=== PATIENT | female | born 1970 | race Caucasian/White ===

== ENCOUNTER 2022-02-18 08:02 | Emergency (ER) | payer OTHER, SELFPAY ==
--- NOTE | 2022-02-18 08:08 | ED.URI ---
HPI - URI/Sore Throat General Chief Complaint: Upper Respiratory Infection Stated Complaint: Sore Throat/Cough Time Seen by Provider: 02/18/22 08:21 Source: patient and RN notes reviewed Mode of arrival: EMS Limitations: no limitations History of Present Illness HPI Narrative: 52-year-old female concern for 3 week history of sore throat, cough, nasal congestion, eye drainage. Reports she is taking multiple [id number]-emfmdus medications with only temporary or no relief. She reports intermittent fevers of up to 101. Reports members of her family have been sick but have gotten better. MD elicited complaint: cough and sore throat Related Data Home Medications Medication Instructions Recorded Confirmed lisinopril 20 0.5 tablet PO DAILY 02/18/22 02/18/22 mg-hydrochlorothiazide 25 mg tablet Allergies Allergy/AdvReac Type Severity Reaction Status Date / Time adhesive Allergy Unknown unknown Verified 02/18/22 08:15 Review of Systems Review of Systems: CONSTITUTIONAL: Reports malaise, fever. EYES: Denies visual changes, redness. Reports discharge. ENT: Reports rhinorrhea, congestion, sinus pain,and sore throat. CARDIOVASCULAR: Denies chest pain, palpitations, or edema. RESPIRATORY: Reports persistent cough. Denies dyspnea. GASTROINTESTINAL: Denies abdominal pain, nausea, vomiting, diarrhea SKIN: Denies rash or itching. MUSCULOSKELETAL: Denies myalgia. NEUROLOGIC: Denies headache. All systems reviewed & are unremarkable except as noted in HPI and below PMFSH Past Medical History Medical History (Updated 02/18/22 @ 08:26 by Anabella Banerjee NP) Hypertension Family History Family History (Updated 10/19/15 @ 23:19 by DOCTOR UNKNOWN) Father Family history of glaucoma Family history of rheumatoid arthritis Family history of diabetes mellitus in first degree relative Family history of heart disease in male family member before age 55 Mother Family history of psoriasis Grandparent Family history of malignant neoplasm of ovary Family history of heart disease in male family member before age 55 Diabetes mellitus Other Hypertension Social History Social History Smoking status: Never smoker Second hand tobacco smoke exposure: No Alcohol intake: current Comments At time of signature, agree with nursing past medical, surgical, social and family history. There is no relevant family history pertinent to the presenting complaint Exam Narrative: GENERAL: Well-appearing, well-nourished, and in no acute distress. HEAD: Normocephalic EYES: PERRLA, conjunctivae clear ENT: Nares clear, turbinates edematous and erythematous. Mucous membranes moist. TM pearly prescott with dull light reflex bilaterally; no tragal tenderness. Oropharynx erythematous without lesions. Tonsils not enlarged and without exudate, no drooling, no hoarseness, no trismus, uvula midline. NECK: Supple. No lymphadenopathy CHEST: Clear to auscultation, breath sounds equal. No wheezing, rhonchi, rales, or stridor. No respiratory distress, speaks in full sentences. HEART: Regular rate and rhythm. No murmur heard. SKIN: Warm, dry, no rash. NEURO: Alert and oriented x3. PSYCH: Normal mood and affect Course Course Emergency Course: Patient is aware of diagnosis, understands and agrees to treatment plan. Anticipatory guidance given. Patient agrees to follow-up as directed and is aware of reasons to seek care at the emergency department. Portions of this record may have been created with voice recognition software Level of Care: Express Care Visit Vital Signs Vital signs: Reviewed. MDM - URI/Sore Throat MDM Narrative Medical decision making narrative: Differential diagnosis considered: Kumar virus, strep pharyngitis, allergic rhinitis, upper respiratory tract infection, sinusitis, rhinosinusitis, nasopharyngitis. viral pharyngitis, otitis media, otitis externa, pneumonia, bronchitis, viral cough syndrome, viral syndrome, and influenz
[2022-02-18 08:10] VITALS: BP 186/99; PULSE 79; RESP 20; TEMP 36.6; O2SAT 98
== END 2022-02-18 08:29 | disposition home or self-care (01) ==
PROVIDERS: Emergency Provider Nurse Practitioner
DX: J32.9 Chronic sinusitis, unspecified (principal); J40 Bronchitis, not specified as acute or chronic; I10 Essential (primary) hypertension
CPT/HCPCS: 99213; G0463

== ENCOUNTER 2022-08-15 10:33 | Outpatient (CLI) | payer OTHER, SELFPAY ==
--- NOTE | 2022-08-15 11:13 | ECG_ITS ---
Measurements Intervals Lamont Rate: 71 P: 12 NM: 195 QRS: 16 QRSD: 87 T: 45 QT: 400 QTc: 436 Interpretive Statements SINUS RHYTHM LEFT VENTRICULAR HYPERTROPHY WITH ST-T CHANGE CONSIDER INFERIOR INFARCT, AGE INDETERMINATE ABNORMAL ECG NO PREVIOUS ECG AVAILABLE FOR COMPARISON Electronically Signed On 08-15-2022 12:31:07 CDT by Alexander Delgadillo D.O.
[2022-08-15 11:49] LABS: Anion Gap 5 mmol/L (8-16); Blood Urea Nitrogen 11 mg/dL (7-17); Carbon Dioxide 34 mmol/L (22-30); Chloride 101 mmol/L (98-107); Estimated Glomerular Filt Rate > 60; Glucose 125 mg/dL (65-110); Potassium 3.6 mmol/L (3.4-5.0); Sodium 140 mmol/L (137-145)
== END 2022-08-15 10:34 | disposition home or self-care (01) ==
PROVIDERS: PCP Hospitalist; Visit Provider Orthopaedic Surgery
DX: M25.561 Pain in right knee (principal); R94.31 Abnormal electrocardiogram [ECG] [EKG]
CPT/HCPCS: 36415; 80048; 93005

== ENCOUNTER 2022-09-08 08:10 | Emergency (ER) | payer OTHER, SELFPAY ==
[2022-09-08 08:16] VITALS: BP 167/93; PULSE 94; RESP 20; TEMP 36.8; O2SAT 97
[2022-09-08 08:27] VITALS: BP 167/93; PULSE 94; RESP 20; TEMP 36.8; O2SAT 97
--- NOTE | 2022-09-08 08:31 | ED.FEMALEGU ---
HPI - Female Genitourinary General Chief complaint: Urogenital-Female Stated complaint: Poss UTI History of Present Illness HPI Narrative: patient presents with low back pain burning with urination no pelvic pain no flank pain no gross hematuria no concern for STD Related Data Home Medications Medication Instructions Recorded Confirmed lisinopril 20 0.5 tablet PO DAILY 02/18/22 09/08/22 mg-hydrochlorothiazide 25 mg tablet Allergies Allergy/AdvReac Type Severity Reaction Status Date / Time adhesive Allergy Unknown unknown Verified 09/08/22 08:19 Review of Systems Review of Systems: CONSTITUTIONAL: Denies fever, chills, or sweats. EYES: Denies visual changes, redness, or discharge. ENT: Denies rhinorrhea, congestion, sore throat, or otalgia. CARDIOVASCULAR: Denies chest pain, palpitations, or edema. RESPIRATORY: Denies cough or dyspnea. GASTROINTESTINAL: Denies abdominal pain, nausea, vomiting, or diarrhea. GENITOURINARY: Denies dysuria or hematuria. SKIN: Denies rash or itching. MUSCULOSKELETAL: Denies back pain, joint pain, or myalgia. NEUROLOGIC: Denies headache, numbness, or weakness. PSYCHIATRIC: Denies anxiety or depression. [facility] Past Medical History Medical History (Updated 09/08/22 @ 08:34 by ERVIN Haynes) Hypertension Family History Family History (Updated 10/19/15 @ 23:19 by DOCTOR UNKNOWN) Father Family history of glaucoma Family history of rheumatoid arthritis Family history of diabetes mellitus in first degree relative Family history of heart disease in male family member before age 55 Mother Family history of psoriasis Grandparent Family history of malignant neoplasm of ovary Family history of heart disease in male family member before age 55 Diabetes mellitus Other Hypertension Social History Social History Smoking status: Never smoker Second hand tobacco smoke exposure: No Alcohol intake: current Comments At time of signature, agree with nursing past medical, surgical, social and family history. There is no relevant family history pertinent to the presenting complaint Exam Narrative: GENERAL: Well-appearing, well-nourished, and in no acute distress. HEAD: Normocephalic, atraumatic. EYES: PERRLA and EOMI. ENT: Nares clear, no rhinorrhea or epistaxis. Mucous membranes moist. NECK: Supple. CHEST: Clear to auscultation. No respiratory distress. HEART: Regular rate and rhythm. No murmur heard. Normal peripheral pulses. ABDOMEN: Soft, nontender, nondistended, normal active bowel sounds. No flank pain no suprapubic pain EXTREMITIES: Normal range of motion. No edema. SKIN: Warm, dry, no rash. NEURO: No focal deficits. Alert and oriented x3. Maddie Coma Scale Eye Opening: Spontaneous 4 Maddie Coma Scale Motor: Obeys Commands 6 Maddie Coma Scale Verbal: Oriented 5 Maddie Coma Scale Total 15 Course Course Level of Care: Express Care Visit Vital Signs Vital signs: Vital Signs Temperature 36.8 C 09/08/22 08:16 Pulse Rate 94 09/08/22 08:16 Respiratory Rate 20 09/08/22 08:16 Blood Pressure 167/93 H 09/08/22 08:16 Pulse Oximetry 97 09/08/22 08:16 Oxygen Delivery Room Air 09/08/22 08:16 Temperature 36.8 C 09/08/22 08:27 Pulse Rate 94 09/08/22 08:27 Respiratory Rate 20 09/08/22 08:27 Blood Pressure 167/93 H 09/08/22 08:27 Pulse Oximetry 97 09/08/22 08:27 Oxygen Delivery Room Air 09/08/22 08:27 Please IGNACIO schedule a followup visit with your personal physician for further evaluation and treatment. Including recheck and discussion of your blood pressure. If your symptoms persist, change or worsen significantly before you can contact your personal physician then please, without delay, go to the emergency department for further evaluation MDM - Female Genitourinary Differential Diagnosis Differential diagnosis: Likely urinary tract infection, bacterial vaginosis, trichomoniasis, cervicitis
== END 2022-09-08 08:40 | disposition home or self-care (01) ==
PROVIDERS: Emergency Provider Nurse Practitioner Family; PCP Hospitalist
DX: N39.0 Urinary tract infection, site not specified (principal); I10 Essential (primary) hypertension; B96.20 Unspecified Escherichia coli [E. coli] as the cause of diseases classified elsewhere
CPT/HCPCS: 81003; 87077; 87086; 87186; 99213; G0463

== ENCOUNTER 2022-11-20 08:02 | Emergency (ER) | payer OTHER, SELFPAY ==
[2022-11-20 08:12] VITALS: BP 170/100; PULSE 70; RESP 18; TEMP 36.7; O2SAT 100
--- NOTE | 2022-11-20 08:18 | ED.GENADULT ---
HPI - General Adult General Chief complaint: Skin/Abscess/Foreign Body Stated complaint: Poison Elli Time Seen by Provider: 11/20/22 08:18 Source: patient Mode of arrival: ambulatory Limitations: no limitations History of Present Illness HPI narrative: 52 y/o female presented for c/o left eye swelling, redness, and itching since yesterday. Symptoms started after working in the yard. States she gets poison elli every year, this is the first time this season. Denies vision changes, eye pain, photophobia or eye drainage. Denies lip, tongue, or throat swelling, shortness of breath or wheezing. Denies changes to soap, detergent, lotion, or any other exposures. No one else in the house or any contacts with similar symptoms. Took Motrin for symptoms. Related Data Home Medications Medication Instructions Recorded Confirmed lisinopril 20 0.5 tablet PO DAILY 02/18/22 11/20/22 mg-hydrochlorothiazide 25 mg tablet Allergies Allergy/AdvReac Type Severity Reaction Status Date / Time adhesive Allergy Unknown unknown Verified 11/20/22 08:20 Review of Systems Review of Systems: CONSTITUTIONAL: Denies body aches, fever, chills, or sweats. EYES: Denies visual changes, redness, or discharge. ENT: Denies rhinorrhea, congestion CARDIOVASCULAR: Denies chest pain, palpitations, or edema. RESPIRATORY: Denies cough or dyspnea. GASTROINTESTINAL: Denies abdominal pain, nausea, vomiting, or diarrhea. SKIN: left eye redness and itching MUSCULOSKELETAL: Denies back pain, joint pain, or myalgia. NEUROLOGIC: Denies headache, numbness, tingling, or weakness. [facility], [facility] Past Medical History Medical History Hypertension Family History Family History Father Family history of glaucoma Family history of rheumatoid arthritis Family history of diabetes mellitus in first degree relative Family history of heart disease in male family member before age 55 Mother Family history of psoriasis Grandparent Family history of malignant neoplasm of ovary Family history of heart disease in male family member before age 55 Diabetes mellitus Other Hypertension Social History Social History Smoking status: Never smoker Second hand tobacco smoke exposure: No Alcohol intake: current Comments At time of signature, I have reviewed and agree with nursing past medical, surgical, social and family history unless otherwise noted. Please see nursing chart for further information. There is no relevant family history pertinent to the presenting complaint Exam Narrative: GENERAL: Well-appearing HEAD: Normocephalic, atraumatic. EYES: bilateral conjunctivae clear, PERRLA and EOMI. Left eye with mild periorbital swelling and erythema c/w contact dermatitis. Eye is not occluded. No drainage. No FB. ENT: Mucous membranes moist. Oropharynx without edema, erythema or lesions. NECK: Supple. No lymphadenopathy CHEST: Clear to auscultation. HEART: Regular rate and rhythm. SKIN: Warm, dry. NEURO: Alert and oriented x3. Course Course Emergency Course: Patient is aware of diagnosis, understands and agrees to treatment plan. Anticipatory guidance given. Patient agrees to follow-up as directed and is aware of reasons to seek care at the emergency department. Portions of this record may have been created with voice recognition software Level of Care: Express Care Visit Vital Signs Vital signs: Reviewed Medical Decision Making MDM Narrative Medical decision making narrative: Discussed physical exam findings consistent with contact dermatitis of the left eye. Advised supportive measures and signs/symptoms to go to the ER. Pt is appropriate for outpt treatment and f/u. Differential Diagnosis Differential Diagnosis: allergic reaction, urticaria, angioedema, dermatitis
[2022-11-20 08:20] VITALS: BP 170/100; PULSE 70; RESP 18; TEMP 36.7; O2SAT 100
== END 2022-11-20 08:36 | disposition home or self-care (01) ==
PROVIDERS: Emergency Provider Nurse Practitioner Family; PCP Hospitalist
DX: L25.9 Unspecified contact dermatitis, unspecified cause (principal); I10 Essential (primary) hypertension
CPT/HCPCS: 99213; G0463

== ENCOUNTER 2023-01-05 09:45 | Outpatient (CLI) | payer OTHER, SELFPAY ==
[2023-01-05 19:07] LABS: Basophils Absolute Auto 0.1 K/mm3 (0.0-0.1); Basophils Percent Auto 0.7 % (0.2-1.2); Eosinophils Absolute Auto 0.2 K/mm3 (0-0.3); Eosinophils Percent Auto 1.9 % (0-4.4); Immature Granulocyte Absolute 0.08 K/mm3 (0.00-0.031); Immature Granulocyte Percent A 0.8 % (0-0.5); Lymphocytes Percent Auto 42.8 % (18.3-44.2); Mean Corpuscular HGB Conc 32.7 g/dl (32-36); Mean Corpuscular Hemoglobin 28.8 pg (26-34); Mean Corpuscular Volume 88.1 fl (80-100); Mean Platelet Volume 10.6 fl (7.4-10.4); Monocytes Absolute Auto 0.6 K/mm3 (0.1-0.6); Monocytes Percent Auto 5.7 % (2.6-8.5); Neutrophils Absolute Auto 5.1 K/mm3 (1.3-6.7); Neutrophils Percent Auto 48.1 % (45.5-73.1); Platelet Count Result 266 k/mm3 (150-375); Red Blood Count 5.56 M/mm3 (4.2-5.4); White Blood Count 10.5 K/mm3 (4.5-10.0)
[2023-01-05 20:03] LABS: Potassium 4.1 mmol/L (3.4-5.0)
[2023-01-05 20:09] LABS: Alanine Aminotransferase 24 U/L (6-35); Albumin Level 4.5 g/dL (3.5-5.1); Alkaline Phosphatase 93 U/L (38-126); Anion Gap 6 mmol/L (8-16); Aspartate Amino Transferase 52 U/L (14-36); Bilirubin,Total 0.6 mg/dL (0.2-1.3); Blood Urea Nitrogen 9 mg/dL (7-17); Calcium 9.3 mg/dL (8.4-10.2); Carbon Dioxide 31 mmol/L (22-30); Chloride 102 mmol/L (98-107); Cholesterol 250 mg/dL (0-200); Estimated Glomerular Filt Rate > 60; Glucose 95 mg/dL (65-110); HDL Direct 51 mg/dL; Sodium 139 mmol/L (137-145); Triglycerides 108 mg/dL (<150)
[2023-01-05 20:15] LABS: LDL Cholesterol Direct 152 mg/dL
[2023-01-05 20:32] LABS: Hemoglobin A1C 5.3 % (<5.7)
[2023-01-08 20:54] LABS: Insulin Level Total 22.9 uIU/mL (<=18.4)
== END 2023-01-05 09:46 | disposition home or self-care (01) ==
LOC: ANHBWCLAB 09:46
PROVIDERS: PCP Nurse Practitioner Adult Health; Visit Provider Nurse Practitioner Adult Health
DX: I10 Essential (primary) hypertension (principal); E66.9 Obesity, unspecified
CPT/HCPCS: 36415; 80053; 80061; 83036; 83525; 84443; 85025

== ENCOUNTER 2023-07-07 08:54 | Outpatient (CLI) | payer OTHER, SELFPAY ==
[2023-07-07 19:02] LABS: Basophils Absolute Auto 0.1 K/mm3 (0.0-0.1); Basophils Percent Auto 0.5 % (0.2-1.2); Eosinophils Absolute Auto 0.2 K/mm3 (0-0.3); Eosinophils Percent Auto 2.4 % (0-4.4); Hematocrit 51.5 % (37.0-47.0); Hemoglobin 16.3 g/dL (12.0-15.0); Immature Granulocyte Absolute 0.05 K/mm3 (0.00-0.031); Immature Granulocyte Percent A 0.5 % (0-0.5); Lymphocytes Absolute Auto 3.83 K/mm3 (0.9-3.2); Lymphocytes Percent Auto 40.1 % (18.3-44.2); Mean Corpuscular HGB Conc 31.7 g/dl (32-36); Mean Corpuscular Hemoglobin 27.5 pg (26-34); Mean Platelet Volume 10.9 fl (7.4-10.4); Monocytes Absolute Auto 0.6 K/mm3 (0.1-0.6); Monocytes Percent Auto 6.7 % (2.6-8.5); Neutrophils Absolute Auto 4.8 K/mm3 (1.3-6.7); Neutrophils Percent Auto 49.8 % (45.5-73.1); Platelet Count Result 255 k/mm3 (150-375); Red Blood Count 5.92 M/mm3 (4.2-5.4); Red Cell Distribution Width 14.5 % (11.5-14.5); White Blood Count 9.6 K/mm3 (4.5-10.0)
[2023-07-07 19:34] LABS: Alanine Aminotransferase 23 U/L (6-35); Albumin Level 4.7 g/dL (3.5-5.1); Alkaline Phosphatase 87 U/L (38-126); Anion Gap 4 mmol/L (4-12); Aspartate Amino Transferase 60 U/L (14-36); Bilirubin,Total 0.6 mg/dL (0.2-1.3); Blood Urea Nitrogen 11 mg/dL (7-17); Calcium 9.6 mg/dL (8.4-10.2); Carbon Dioxide 32 mmol/L (22-30); Chloride 102 mmol/L (98-107); Cholesterol 246 mg/dL (0-200); Estimated Glomerular Filt Rate > 60; Glucose 99 mg/dL (65-110); HDL Direct 56 mg/dL; Potassium 4.1 mmol/L (3.4-5.0); Sodium 138 mmol/L (137-145); Triglycerides 159 mg/dL (<150)
[2023-07-07 19:45] LABS: LDL Cholesterol Direct 157 mg/dL
[2023-07-07 20:40] LABS: Hemoglobin A1C 5.6 % (<5.7)
== END 2023-07-07 08:55 | disposition home or self-care (01) ==
LOC: ANHBWCLAB 08:55
PROVIDERS: PCP Nurse Practitioner Adult Health; Visit Provider Nurse Practitioner Adult Health
DX: E78.5 Hyperlipidemia, unspecified (principal)
CPT/HCPCS: 36415; 80053; 80061; 83036; 84443; 85025

== ENCOUNTER 2024-01-07 11:11 | Outpatient (CLI) | payer OTHER, SELFPAY ==
[2024-01-07 18:55] LABS: Basophils Absolute Auto 0.1 K/mm3 (0.0-0.1); Basophils Percent Auto 0.4 % (0.2-1.2); Eosinophils Absolute Auto 0.2 K/mm3 (0-0.3); Eosinophils Percent Auto 1.5 % (0-4.4); Hematocrit 47.2 % (37.0-47.0); Hemoglobin 15.6 g/dL (12.0-15.0); Immature Granulocyte Absolute 0.05 K/mm3 (0.00-0.031); Immature Granulocyte Percent A 0.4 % (0-0.5); Lymphocytes Absolute Auto 3.76 K/mm3 (0.9-3.2); Lymphocytes Percent Auto 32.2 % (18.3-44.2); Mean Corpuscular HGB Conc 33.1 g/dl (32-36); Mean Corpuscular Hemoglobin 29.5 pg (26-34); Mean Corpuscular Volume 89.2 fl (80-100); Mean Platelet Volume 10.9 fl (7.4-10.4); Monocytes Absolute Auto 0.7 K/mm3 (0.1-0.6); Monocytes Percent Auto 6.2 % (2.6-8.5); Neutrophils Absolute Auto 6.9 K/mm3 (1.3-6.7); Neutrophils Percent Auto 59.3 % (45.5-73.1); Platelet Count Result 281 k/mm3 (150-375); Red Blood Count 5.29 M/mm3 (4.2-5.4); Red Cell Distribution Width 13.5 % (11.5-14.5); White Blood Count 11.7 K/mm3 (4.5-10.0)
[2024-01-07 19:29] LABS: Alanine Aminotransferase 31 U/L (6-35); Albumin Level 4.6 g/dL (3.5-5.1); Alkaline Phosphatase 60 U/L (38-126); Anion Gap 8 mmol/L (4-12); Aspartate Amino Transferase 70 U/L (14-36); Bilirubin,Total 0.6 mg/dL (0.2-1.3); Blood Urea Nitrogen 14 mg/dL (7-17); Calcium 9.8 mg/dL (8.4-10.2); Carbon Dioxide 31 mmol/L (22-30); Chloride 99 mmol/L (98-107); Cholesterol 224 mg/dL (0-200); Estimated Glomerular Filt Rate > 60; Glucose 90 mg/dL (65-110); HDL Direct 49 mg/dL; Magnesium 2.4 mg/dL (1.6-2.3); Potassium 4.2 mmol/L (3.4-5.0); Sodium 138 mmol/L (137-145); Triglycerides 154 mg/dL (<150)
[2024-01-07 19:41] LABS: LDL Cholesterol Direct 130 mg/dL
== END 2024-01-07 11:12 | disposition home or self-care (01) ==
LOC: ANHBWCLAB 11:13
PROVIDERS: PCP Nurse Practitioner Adult Health; Visit Provider Nurse Practitioner Adult Health
DX: I10 Essential (primary) hypertension (principal)
CPT/HCPCS: 36415; 80053; 80061; 83735; 85025

== ENCOUNTER 2024-07-14 08:52 | Outpatient (CLI) | payer OTHER, SELFPAY ==
--- OUTSIDE RECORDS SUMMARY | 2024-07-14 09:23 | XMS_ITS | Clinical Summary ---
Author Organization [facility] Address [address] [place] [address] Phone Care Team Providers Care Sharepoint Net Developer Name Role Phone Ruben Amaya MD Unavailable Allergies Active Allergy Reactions Criticality Noted Date Comments Adhesive Tape Rash,Itching 10/27/2016 Medications ergocalciferol (VITAMIN D) 08774 UNIT CapsuleIndicatio ns:Vitamin D deficiency Take 1 Cap by mouth once a week. 12 Cap 1 02/23/2019 Active lisinopril-hydro CHLOROthiazide (PRINZIDE, ZESTORETIC) 20-25 MG TabletIndication s:Hypertension, benign Take 1 Tab by mouth daily. 90 Tab 07/21/2019 Active Active Problems Problem Noted Date Diagnosed Date Vitamin D deficiency 09/20/2018 Hypertension, benign 10/27/2016 Obesity, morbid, BMI 40.0-49.9 10/27/2016 Hyperlipidemia 05/23/2003 Overview (08/11/2018): Overview: Hyperlipidemia Immunizations Immunization Administration Dates Next Due Influenza Vaccine, Quadrivalent, PF 12/02/2016 Influenza, Seasonal, Injectable, Undefined 01/13 Family History Medical History Relation Name Comments Diabetes Father Glaucoma Father Heart Attack Father Hypertension Father Rheumatoid Arthritis Father Heart Disease Maternal Grandfather Ovarian Cancer Maternal Grandmother Psoriasis Mother Diabetes Paternal Grandmother Relation Name Status Comments Father Alive Maternal Grandfather Maternal Grandmother Mother Alive Paternal Grandmother Social History Tobacco Use Types Packs/Day Years Used Date Smoking Tobacco: Never Smokeless Tobacco: Never Tobacco Cessation:Counseling Given: No Alcohol Use Standard Drinks/Week Comments Yes 0 (1 standard drink = 0.6 oz pur e alcohol) PHQ-2 Answer Date Recorded PHQ-2 Score 0 11/18/2018 Comments No Sex and Gender Information Value Date Recorded Sex Assigned at Not on file Legal Sex Female 7:26 PM CDT Gender Identity Not on file Sexual Orientation Not on file Last Filed Vital Signs Vital Sign Reading Time Taken Comments Blood Pressure 120/78 09/20/2018 10:02 AM CDT Pulse 82 09/20/2018 10:02 AM CDT Temperature 36.8 C (98.2 F) 09/20/2018 10:02 AM CDT Respiratory Rate 18 09/20/2018 10:0 2 AM CDT Oxygen Saturation 97% 09/20/2018 10: 02 AM CDT Inhaled Oxygen Concentration - - Weight 116.9 kg (257 lb 12. 8 oz) 09/20/2018 10:02 AM CDT Height 163.8 cm (5' 4.5 ) 09/20/2018 10 :02 AM CDT measured today Body Mass Index 43.57 09/20/2018 10:02 AM CDT Plan of Treatment Health Maintenance Due Date Last Done Comments Hepatitis C Virus (HCV) Screening 1970 TdaP Immunization 1970 Hepatitis B Immunization (1 of 3 - 19+ 3-dose series) 01/22/1987 Colonoscopy 01/22/2013 Colorectal Cancer Screening 01/22/2013 Cologuard 01/22/2018 Immunochemical Fecal Occult Blood 01/22/2018 Pneumococcal Immunization (5 0+ years) (1 of 1 - PCV) 01/22/2018 Zoster Immunization (1 of 2) 01/22/2018 Influenza Immunization (#1) 11/22/202311/21, 01/13/2013 SARS-COV-2 Immunization ( - 2023- season) 2023 Respiratory Syncytial Virus (RSV) Immunization (Adult) (1 - 1-dose 75+ series) 01/22/2043 Cervical Cancer Screening (CCS) Discontinued Pap Smear Discontinued 12/11/2011 Mammogram Discontinued 11/17/2018, 01/25/2013 HPV/Cotest Discontinued Meningococcal Immunization (ACWY) Aged Out No longer eligible based on patient's age to complete this topic Rotavirus Immunization Aged Out No lo nger eligible based on patient's age to complete this topic Procedures Procedure Name Priority Date/Time Associated Diagnosis Comments MANOHAR SCREENING BILATERAL DIGITAL W CAD W JOON Routine 11/17/2018 10:14 AM CDT Encounter for screening mammogram for malignant neoplasm of breast PATHOLOGY CYTOLOGY RESIDENTIAL SOLAR SALES CONSULTANT Routine 12/11/2011 from Last 3 Months or Most Recently Relevant to Health Maintenance Results * MANOHAR SCREENING BILATERAL DIGITAL W CAD W JOON (11/17/2018 10:14 AM CDT) Anatomical Region Laterality Modality breast Bilateral Mammography 11/17/2018 9:59 AM CDT Narrative 11/19/2018 11:04 AM CDT - MANOHAR SCREENING BILATERAL DIGITAL W CAD W JOON BILATERAL DIGITAL SCREENING MAMMOGRAM 3D/2D WITH CAD WITH MEDIOLATERAL OBLIQUE CRANIOCAUDAL: 11/17/2018 The study was acquired using digital technology and interpreted from soft copy. Current study was also evaluated with AppsFunder version 7.2. CLINICAL: Routine screening. Patient has no complaints. No personal history of cancer. No family history of breast cancer. COMPARISONS: Comparison is made to exams dated: 01/15/2010, 01/25/2013, and 01/19/2012 [facility]. BREAST TISSUE:There are scattered fibroglandular densities in both breasts. FINDINGS: No significant masses, calcifications, or other findings are seen in either breast. There has been no significant interval change. IMPRESSION: BI-RAD 1 NEGATIVE There is no mammographic evidence of malignancy. A 1 year screening mammogram is recommended. The patient has been or will be contacted. The patient will be entered into a reminder system with a target due date of 1 year for her next screening exam. Electronically signed by: Kobi farr/morris:11/18/2018 16:24:53 News Camera Operator: Christine Nugent (Jess), [facility] letter sent: Normal Exam Reading location: [facility] BI-RADS: 1 Negative Procedure Note Kobi García MD - 11/19/2018 - MANOHAR SCREENING BILATERAL DIGITAL W CAD W JOON BILATERAL DIGITAL SCREENING MAMMOGRAM 3D/2D WITH CAD WITH MEDIOLATERAL OBLIQUE CRANIOCAUDAL: 11/17/2018 The study was acquired using digital technology and interpreted from soft copy. Current study was also evaluated with ICAD version 7.2. CLINICAL: Routine screening. Patient has no complaints. No personal history of cancer. No family history of breast cancer. COMPARISONS: Comparison is made to exams dated: 01/15/2010, 01/25/2013, and 01/19/2012 [facility]. BREAST TISSUE:There are scattered fibroglandular densities in both breasts. FINDINGS: No significant masses, calcifications, or other findings are seen in either breast. There has been no significant interval change. IMPRESSION: BI-RAD 1 NEGATIVE There is no mammographic evidence of malignancy. A 1 year screening mammogram is recommended. The patient has been or will be contacted. The patient will be entered into a reminder system with a target due date of 1 year for her next screening exam. Electronically signed by: Kobi farr/morris:11/18/2018 16:24:53 News Camera Operator: Christine Nugent (R), [facility] letter sent: Normal Exam Reading location: [facility] BI-RADS: 1 Negative Ruben Amaya MD IMG MAMMO ORDERABLES F inal Result * PATHOLOGY CYTOLOGY RESIDENTIAL SOLAR SALES CONSULTANT (12/11/2011) Specimen of unknown material (specimen) Ruben Amaya MD PATHOLOGY/CYTOLOGY ORD ERABLES Final Result from Last 3 Months or Most Recently Relevant to Health Maintenance Insurance [facility] Care Teams Sharepoint Net Developer Relationship Specialty Start Date End Date Ruben Amaya MD Consulting Physician Obstetrics & Gynecology 08/11/18
--- OUTSIDE RECORDS SUMMARY | 2024-07-14 09:23 | XMS_ITS | Encounter Summary ---
Author Organization [facility] Address [address] [place] [address] Care Team Providers Care Weld Engineer Name Role Phone Unavailable Primary Care Provider Unavailabl e Encounter Details Date Type Department Care Team (Late st Contact Info) Description 05/23/2003 Outpatient Historical [facility] Internal Medicine [address] [id number] Rafal Riley MD [address] [place] [id number] Social History Tobacco Use Types Packs/Day Years Used Date Smoking Tobacco: Never Assessed Comments Unknown Sex and Gender Information Value Date Recorded Sex Assigned at Not on file Legal Sex Female 3:15 AM BOILING HOUSE HAND Gender Identity Not on file Sexual Orientation Not on file documented as of this encounter Last Filed Vital Signs Vital Sign Reading Time Taken Comments Blood Pressure 150/80 05/23/2003 4:00 PM BOILING HOUSE HAND Pulse - - Temperature - - Respiratory Rate - - Oxygen Saturation - - Inhaled Oxygen Concentration - - Weight 96.6 kg (213 lb) 05/23/2003 4:00 PM BOILING HOUSE HAND Height - - Body Mass Index - - documented in this encounter Plan of Treatment Not on file documented as of this encounter Visit Diagnoses Not on filedocumented in this encounter
--- OUTSIDE RECORDS SUMMARY | 2024-07-14 09:24 | XMS_ITS | Referral Summary ---
Author Organization [facility] [place] [address] [facility] Address [address] [place] [address] Care Team Providers Care President Educational Institution Name Role Phone Rajiv Nowak MD Primary Care Provider [phone] Allergies Active Allergy Reactions Criticality Noted Date Comments Adhesive Itching,Rash Medium 10/27/2016 Medications cholecalciferol (Vitamin D3) 2000 unit tabletIndicatio ns:Vitamin D Deficiency Take 1 tablet (2,000 Units total) by mouth daily 90 tablet 3 02/26/2021 Active lisinopril-hydr oCHLOROthiazide (ZESTORETIC) 20-25 mg per tablet Take 0.5 tablets by mouth daily 45 tablet 3 11/06/2021 Active Active Problems Problem Noted Date Diagnosed Date Vitamin D deficiency 09/20/2018 Assessment & Plan (08/14/2020 2:10 PM CDT): Stable, improving, continue VitD 2000 units per day Assessment & Plan (05/17/2020 10:24 AM INSURANCE AGENCY MANAGER): Will recheck VitD levels today; if low will recommend continued supplementation Class 3 severe obesity due t o excess calories with serious comorbidity and body mass index (BMI) of 40.0 to 44.9 in adult 10/21/2012 Overview (05/17/2020): Obesity Assessment & Plan (08/27/2021 11:33 AM CDT): Stable over past 6 months; encouraged patient to work on dietary changes as well as increased activity and exercise order to reduce weight Working cor control through portion control of current diet Work on targeting 30 minutes of moderate intensity exercise 5 days per week Assessment & Plan (02/26/2021 10:05 AM INSURANCE AGENCY MANAGER): Patient reports no significant work on weight loss recently; has had some weight gain since last appointment Has multiple stressors, as well as decreased ability to leave home due to caring for children during school or teens Encouraged patient to continue to work on portion control, getting 6-8 servings of vegetables and fruits per day, and target 30 minutes of moderate intensity exercise 5 days per week Assessment & Plan (08/14/2020 2:11 PM CDT): Not well controlled, continues to have elevated BMI, no significant change in diet -increased activity during summer -encourage patient to evaluate changes to apply at end of summer to maintain weight loss in fall and winter Assessment & Plan (05/17/2020 10:24 AM INSURANCE AGENCY MANAGER): Not well controlled, patient reports she exercises 3-4 times per week; has mixed diet. -has not been focusing on weight loss in past year Hyperlipidemia 10/21/2012 Overview (06/26/2016): Hyperlipidemia Assessment & Plan (08/27/2021 11:33 AM CDT): Stable, ASCVD risk score is 2.1%, placing patient in low risk category Will continue to monitor, encourage dietary changes Continue to monitor if ASCVD risk score increases, would consider recommending statin therapy Assessment & Plan (02/26/2021 10:04 AM INSURANCE AGENCY MANAGER): Elevated total cholesterol, LDL cholesterol and triglycerides; ASCVD risk is 2.3% No need for statin therapy at this time; patient given education on dietary and activity changes to reduce cholesterol levels Hypertension 10/21/2012 Overview (06/26/2016): Hypertension Assessment & Plan (08/27/2021 11:32 AM CDT): Stable, well controlled; patient reports some episodes of hypotension Patient currently taking half of current fill Continue lisinopril -hydrochlorothiazide 20- 25 mg per tablet, 0.5 tablets daily If patient sees blood pressure starts rising increase, would not recommend returning to 1 pill daily Assessment & Plan (02/26/2021 10:04 AM INSURANCE AGENCY MANAGER): Stable, well controlled; blood pressure at target today and previous appointments Continue lisinopril -hydrochlorothiazide 20-25 daily Assessment & Plan (08/14/2020 2:10 PM CDT): -stable, well controlled; at target today -continue Zestoretic 20-25 today Assessment & Plan (05/17/2020 10:23 AM INSURANCE AGENCY MANAGER): Well controlled, bp at target, will continue current medication and continue to monitor CMP and blood pressure Resolved Problems Problem Noted Date Diagnosed Date Resolved Date Morbid obesity with BMI of 40.0-44.9, adult 05/17/2020 05/17/2020 History of gestational diabe clyde mellitus (GDM) 10/21/2012 05/17/2020 Overview (06/25/2016): Hx gestational diabetes Immunizations Immunization Administration Dates Next Due Influenza, Quadrivalent, Spl it, Preservative Free, Intramuscular 12/02/2016 Influenza, Split 01/13/2013 Influenza, Trivalent, Preser vative Free, Intramuscular 01/13/2013 Influenza, Unspecified 02/26/2021(Deferr ed: Patient Refused),12/21/2020(Deferred: Patient Refused),05/17/2020(Deferred: Patient Refused),03/23/2020(Deferred: Patient Refused),03/23/2020(Deferred: Patient Refused),12/22/2019(Deferred: Patient Refused),03/23/2019(Deferred: Patient Refused),03/23/2019(Deferred: Patient Refused),01/13/2013 Tdap 05/17/2020 Social History Tobacco Use Types Packs/Day Years Used Date Smoking Tobacco: Never Smokeless Tobacco: Never Alcohol Use Standard Drinks/Week Comments Yes 0 (1 standard drink = 0.6 oz pur e alcohol) AUDIT-C Answer Date Recorded Q1: How often do you have a drink containing alc ohol? Never 02/26/2021 Average Number of Drinks Not on file 021 Q3: How often do you have si x or more drinks on one occasion? Never 02/26/2021 PHQ-2 Answer Date Recorded PHQ-2 Total Score (If total score is 3 or more points, staff should administer the PHQ-9) 0 08/27/2021 Comments No Sex and Gender Information Value Date Recorded Sex Assigned at Not on file Legal Sex Female 5:45 PM INSURANCE AGENCY MANAGER Gender Identity Not on file Sexual Orientation Not on file Last Filed Vital Signs Vital Sign Reading Time Taken Comments Blood Pressure 120/80 09/12/2021 9:58 AM CDT Pulse 68 09/12/2021 9:58 AM CDT Temperature 36.3 C (97.4 F) 09/12/2021 9:58 AM CDT Respiratory Rate 14 09/12/2021 9:58 AM CDT Oxygen Saturation 96% 08/27/2021 10:41 AM CDT Inhaled Oxygen Concentration - - Weight 110.7 kg (244 lb) 09/12/2021 9:58 AM CDT Height 162.6 cm (5' 4 ) 09/12/2021 9:58 AM CDT Body Mass Index 41.88 09/12/2021 9:58 AM CDT Plan of Treatment Not on file Procedures Procedure Name Priority Date/Time Associated Diagnosis Comments SCREENING MAMMOGRAM BILATERAL W JOON Schedule Routine, Read Routine (OP Routine) 08/01/2020 9:29 AM CDT Encounter for screening mammogram for malignant neoplasm of breast STOOL DNA COLOGUARD Routine 07/04/2020 9:30 AM CDT Colon cancer screening GENITAL FLUID PAP SMEAR, THIN PREP AND HPV Routine 10/28/2018 from Last 3 Months or Most Recently Relevant to Health Maintenance Results * SCREENING MAMMOGRAM BILATERAL W JOON (08/01/2020 9:29 AM CDT) Anatomical Region Laterality Modality Breast Bilateral Mammography 08/01/2020 2:05 PM CDT Impressions 08/01/2020 2:05 PM CDT There is no mammographic evidence of malignancy. A 1 year screening mammogram is recommended. BI-RADS: 1 - Negative. The patient will be entered into a reminder system with a target due date of 1 year for her next mammogram. Electronically signed by: MD Ada Hernandez 08/01/2020 2:05 PM CDT EXAMINATION: SCREENING MAMMOGRAM BILATERAL W JOON ORDERING HEALTHCARE PROVIDER: RAJIV NOWAK HISTORY: Routine screening mammography. COMPARISON: 01/25/2013 and 01/19/2012 TECHNIQUE: CC and MLO views of the bilateral breasts were obtained with digital technique using breast tomosynthesis with C view. Computer aided detection was utilized. FINDINGS: DENSITY: There are scattered fibroglandular elements in the bilateral breasts. BREASTS: There are no suspicious masses, suspicious calcifications, or other suspicious findings in either breast. There has been no suspicious interval change. us Rajiv Nowak MD IMG MAMMO PROCEDURES Shaila l Result * Stool DNA - Cologuard (07/04/2020 9:30 AM CDT) Stool DNA - Cologuard Negative Not Applicable Door 6 (CLIA #:[id number]) Comment: A negative result indicates a low likelihood that a colorectal cancer (CRC) or an advanced adenoma (adenomatous polyps with more advanced pre-malignant features) is present. The chance that a person with a negative Cologuard test has a colorectal cancer is less than 1 in 1500 (negative predictive value >99.9%) or has an advanced adenoma is less than 5.3% (negative predictive value 94.7%). These data are based on a prospective cross-sectional screening study of 10,000 individuals at average risk for colorectal cancer who were screened with both Cologuard and colonoscopy. (Darren Winkler al, N Engl J Med 2014;370(14):2603-0897) The normal value (reference range) for this assay is negative. COLOGUARD RE-SCREENING RECOMMENDATION: Periodic routine colorectal cancer screening is an important part of preventive healthcare for asymptomatic persons at average risk for colorectal cancer. Following a negative Cologuard result, the [place] Cancer Society and U.S. Multi-Society Task Force screening guidelines recommend a Cologuard re-screening interval of 3 years. References: [place] Cancer Society (ACS). Colorectal cancer prevention and early detection. [place], [place]: [place] Cancer Society; [updated 2015Jul 14]. https://www.cancer.org/cancer/hoocf-mhckxi-odwwjd/gihjjwqmh-himnaxsvx-eunzrvv/ac s-rec ommendations.html. Accessed November 20, 2017; Adams DK, Vinod CR, Carmen MittalK, Colorectal Cancer Screening: Recommendations for Physicians and Patients from the U.S. Multi-Society Task Force on Colorectal Cancer Screening, Am J Gastroenterology 2017; 112:3211-5936. TEST TYPE: Composite algorithmic analysis of stool DNA-biomarkers with hemoglobin immunoassay. Quantitative values of individual biomarkers are not reportable and are not associated with individual biomarker result reference ranges. PRECAUTIONS AND LIMITATIONS: Cologuard is intended for colorectal cancer screening of adults of either sex, 45 years or older, who are at average-risk for colorectal cancer (CRC). Cologuard has been approved for use by the U.S. FDA. Cologuard may produce a false negative or false positive result. A negative Cologuard test result does not guarantee the absence of CRC or advanced adenoma (pre-cancer). Patients with a negative Cologuard test result should be advised to continue participating in a colorectal cancer screening program. The screening interval for Cologuard is currently recommended at an interval of every 3 years by the [place] Cancer Society and U.S. Multi-Society Task Force. A false positive result occurs when Cologuard produces a positive result, even though a colonoscopy may not find colorectal cancer or precancerous polyps. The performance of Cologuard has been established in a cross sectional study (i.e., single point in time) of average-risk adults aged 50-84. Cologuard performance in patients ages 45 to 49 years was estimated by sub-group analysis of near-age groups. Cologuard performance data in a 10,000 patient pivotal study using colonoscopy as the reference method can be accessed at the following location: www.[employer].com/results. Additional description of the Cologuard test process, warnings and precautions can be found at www.cologuardtest.com. Rx only. Stool 07/04/2020 9:30 AM CDT 07/06/2020 1:45 PM CDT us Rajiv Nowak MD LAB BODY FLUIDS AND STOOL S ORDERABLES Final Result [employer] (CLIA #:[id number]) [place] [address] * Genital fluid pap smear, thin prep and HPV (10/28/2018) 10/28/2018 us Historical Provider LAB CYTOLOGY ORDERABLES F inal Result from Last 3 Months or Most Recently Relevant to Health Maintenance Insurance [id number] [place] [address] [facility] Address: [address] [address] [facility] Address: [address] [address] [facility] Address: [address] [address] Care Teams President Educational Institution Relationship Specialty Start Date End Date Rajiv Nowak MD [address] [place] [address] PCP - General Family Medicine 05/17/20
--- OUTSIDE RECORDS SUMMARY | 2024-07-14 09:24 | XMS_ITS | Clinical Summary ---
Author Organization [facility] [place] 163 [facility] Address [address] [facility] [place] [address] Care Team Providers Care Fermenter Wine Name Role Phone Rajiv Nowak MD Primary Care Provider [phone] Allergies Active Allergy Reactions Criticality Noted Date [...] day Assessment & Plan (05/17/2020 10:24 AM DIRECTOR APPOINTMENT): Will recheck VitD levels today; if low [...] week Assessment & Plan (02/26/2021 10:05 AM DIRECTOR APPOINTMENT): Patient reports no significant work on weight [...] winter Assessment & Plan (05/17/2020 10:24 AM DIRECTOR APPOINTMENT): Not well controlled, patient reports she exercises [...] therapy Assessment & Plan (02/26/2021 10:04 AM DIRECTOR APPOINTMENT): Elevated total cholesterol, LDL cholesterol and triglycerides; [...] daily Assessment & Plan (02/26/2021 10:04 AM DIRECTOR APPOINTMENT): Stable, well controlled; blood pressure at target today and previous appointments Continue lisinopril -hydrochlorothiazide 20-25 daily Assessment & Plan (08/14/2020 2:10 PM CDT): -stable, well controlled; at target today -continue Zestoretic 20-25 today Assessment & Plan (05/17/2020 10:23 AM DIRECTOR APPOINTMENT): Well controlled, bp at target, will continue [...] Refused),03/23/2019(Deferred: Patient Refused),03/23/2019(Deferred: Patient Refused),01/13/2013 Tdap 05/17/2020 Surgical History Surgery Date Site/Laterality Comments TONGUE SURGERY 03/23/2009 - 03/22/2010 Growth removed from tongue BREAST BIOPSY 03/23/1999 - 03/22/2000 Right benign bx, pt states she was awake for procedure Medical History Medical History Date Comments Hypertension Hypertension Hyperlipidemia Hyperlipidemia Family History Medical History Relation Name Comments Coronary artery disease Father Marcelino nary artery disease; /Coronary artery disease, premature; Diabetes Father Diabetes mellit us; Diabetes type II Father Diabetes -T ype II; Hypertension Father Hypertension; Other Father Alive and well; Ovarian cancer Maternal Grandmother Breast cancer Maternal Great-Grandmother Psoriasis Mother Relation Name Status Comments Father Alive Maternal Grandmother Maternal Great-Grandmother Mother Alive Social History Tobacco Use Types Packs/Day Years [...] on file Legal Sex Female 5:45 PM DIRECTOR APPOINTMENT Gender Identity Not on file Sexual Orientation Not on file Obstetrics History Para Term AB IAB SAB Ectopic Multiple Livin g Live Births 3 3 3 Date Outcome GA Total Labor Labor/2nd/3rd Weight Sex Type Anes PTL Joy A1 A5 Name Clin Term Term Term Last Filed Vital Signs Vital Sign Reading [...] 09/12/2021 9:58 AM CDT Plan of Treatment Health Maintenance Due Date Last Done Comments Hepatitis C Screening 1970 Hepatitis B Screening 01/22/1986 Regular Well Visit/Exam 18-64 01/22/1986 Zoster Vaccine (1 of 2) 01/22/2018 Cervical Cancer Screening 10/29/2019 10/28/2018 Breast Cancer Screening-Mammogram 08/01/2021 08/01/2020, 11/17/2018, 01/25/2013, Additional history exists Depression Screening 08/27/2022 08/27/2021, 02/26/2021, 08/14/2020, Additional history exists Colon Cancer Screening-DNA Stool 07/05/2023 07/04/2020 Influenza Vaccine (#1) 2023 7, 01/13/2013, 01/13/2013, Additional history exists DTaP/Tdap/Td Vaccine (2 - Td or Tdap) 05/17/2030 05/17/2020 Pneumococcal vaccine <65 Aged Out No longer eligible based on [...] Stool DNA - Cologuard Negative Not Applicable [employer] (CLIA #:[id number]) Comment: A negative result indicates a low [...] screened with both Cologuard and colonoscopy. (Darren Paul et al, N Engl J Med 2014;370(14):5101-6178) The normal value (reference range) for this assay is negative. COLOGUARD RE-SCREENING RECOMMENDATION: Periodic routine colorectal cancer screening is an important part of preventive healthcare for asymptomatic persons at average risk for colorectal cancer. Following a negative Cologuard result, the [place] Cancer Society and U.S. Multi-Society Task Force screening guidelines recommend a Cologuard re-screening interval of 3 years. References: [place] Cancer Society (ACS). Colorectal cancer prevention and early detection. [place], [place]: [place] Cancer Society; [updated 2015Jul 14]. https://www.cancer.org/cancer/yavfg-nvgopk-oiqcss/tdpgirygj-iravkfqvf-xwrcrzn/ac s-rec ommendations.html. Accessed November 20, 2017; Adams DK, Vinod CR, Carmen MittalK, Colorectal Cancer Screening: Recommendations for Physicians and Patients from the U.S. Multi-Society Task Force on Colorectal Cancer Screening, Am J Gastroenterology 2017; 112:7506-8530. TEST TYPE: Composite algorithmic analysis of stool [...] interval of every 3 years by the [place] Cancer Society and U.S. Multi-Society Task Force. [...] can be accessed at the following location: www.[employer].Stkr.it/results. Additional description of the Cologuard test process, warnings and precautions can be found at www.cologuardtest.com. Rx only. Stool 07/04/2020 9:30 AM CDT 07/06/2020 1:45 PM CDT us Rajiv Nowak MD LAB BODY FLUIDS AND STOOL S ORDERABLES Final Result [employer] (CLIA #:[id number]) [place] [address] * Genital fluid pap smear, thin prep and HPV (10/28/2018) 10/28/2018 us Historical Provider LAB CYTOLOGY ORDERABLES F inal Result from Last 3 Months or Most Recently Relevant to Health Maintenance Insurance [id number] [place] [address] Care Teams Fermenter Wine Relationship Specialty Start Date End Date Rajiv Nowak MD [address] [place] [address] PCP - General Family Medicine 05/17/20
--- OUTSIDE RECORDS SUMMARY | 2024-07-14 09:24 | XMS_ITS | Clinical Summary ---
Author Organization [facility] Address [address] Attn: Epic Prelude ADT [place] [address] Care Team Providers Care Manager Mutual Fund Name Role Phone Unavailable Primary Care Provider Unavailabl e Active Problems Problem Noted Date Diagnosed Date Unspecified essential hypertension 05/23/2003 Other and unspecified hyperlipidemia 05/23/2003 Social History Tobacco Use Types Packs/Day Years Used Date Smoking Tobacco: Never Assessed Comments Unknown Sex and Gender Information Value Date Recorded Sex Assigned at Not on file Legal Sex Female 3:15 AM PARACHUTE CUSHION INSTALLER Gender Identity Not on file Sexual Orientation Not on file Last Filed Vital Signs Vital Sign Reading Time Taken Comments Blood Pressure 150/80 05/23/2003 4:00 PM PARACHUTE CUSHION INSTALLER Pulse - - Temperature - - Respiratory Rate - - Oxygen Saturation - - Inhaled Oxygen Concentration - - Weight 96.6 kg (213 lb) 05/23/2003 4:00 PM PARACHUTE CUSHION INSTALLER Height - - Body Mass Index - - Plan of Treatment Health Maintenance Due Date Last Done Comments DTAP/TDAP/TD VACCINES (1 - Tdap) 01/22/1987 HEPATITIS B VACCINES (1 of 3 - 19+ 3-dose series) 04/1986 HPV/Cotest (21-29) 01/22/1989 CERVICAL CANCER SCREENING 01/22/1998 HPV/Cotest (30-65) 01/22/1998 PAP SMEAR 01/22/1998 BREAST CANCER SCREENING 2008 COLORECTAL SCREENING 01/22/2013 Colorectal Cancer Screening 01/22/2013 FIT-DNA Q 3 years 01/22/2013 FIT/FOBT Q 1 year 01/22/2013 Flex Sig/CT Colonography Q 5 years 01/22/2013 ZOSTER VACCINE (1 of 2) 01/22/2018 INFLUENZA VACCINE (#1) 2023
[2024-07-14 19:34] LABS: Basophils Absolute Auto 0.1 K/mm3 (0.0-0.1); Basophils Percent Auto 0.5 % (0.2-1.2); Eosinophils Absolute Auto 0.2 K/mm3 (0-0.3); Eosinophils Percent Auto 2.1 % (0-4.4); Hematocrit 49.3 % (37.0-47.0); Hemoglobin 15.5 g/dL (12.0-15.0); Immature Granulocyte Absolute 0.04 K/mm3 (0.00-0.031); Immature Granulocyte Percent A 0.4 % (0-0.5); Lymphocytes Absolute Auto 4.35 K/mm3 (0.9-3.2); Lymphocytes Percent Auto 40.2 % (18.3-44.2); Mean Corpuscular HGB Conc 31.4 g/dl (32-36); Mean Corpuscular Volume 92.3 fl (80-100); Mean Platelet Volume 10.5 fl (7.4-10.4); Monocytes Absolute Auto 0.7 K/mm3 (0.1-0.6); Monocytes Percent Auto 6.3 % (2.6-8.5); Neutrophils Absolute Auto 5.5 K/mm3 (1.3-6.7); Neutrophils Percent Auto 50.5 % (45.5-73.1); Platelet Count Result 264 k/mm3 (150-375); Red Blood Count 5.34 M/mm3 (4.2-5.4); Red Cell Distribution Width 13.4 % (11.5-14.5); White Blood Count 10.8 K/mm3 (4.5-10.0)
[2024-07-14 19:50] LABS: Alanine Aminotransferase 18 U/L (6-35); Albumin Level 4.5 g/dL (3.5-5.1); Alkaline Phosphatase 67 U/L (38-126); Anion Gap 7 mmol/L (4-12); Aspartate Amino Transferase 60 U/L (14-36); Bilirubin,Total 0.5 mg/dL (0.2-1.3); Blood Urea Nitrogen 18 mg/dL (7-17); Calcium 9.4 mg/dL (8.4-10.2); Carbon Dioxide 29 mmol/L (22-30); Chloride 104 mmol/L (98-107); Cholesterol 246 mg/dL (0-200); Estimated Glomerular Filt Rate > 60; Glucose 85 mg/dL (65-110); HDL Direct 60 mg/dL; Potassium 4.8 mmol/L (3.4-5.0); Sodium 140 mmol/L (137-145); Triglycerides 102 mg/dL (<150)
[2024-07-14 20:02] LABS: LDL Cholesterol Direct 137 mg/dL
[2024-07-14 20:42] LABS: Hemoglobin A1C 4.9 % (<5.7)
== END 2024-07-14 08:53 | disposition home or self-care (01) ==
LOC: ANHBWCLAB 08:53
PROVIDERS: PCP Nurse Practitioner Adult Health; Visit Provider Nurse Practitioner Adult Health
DX: E66.9 Obesity, unspecified (principal); I10 Essential (primary) hypertension
CPT/HCPCS: 36415; 80053; 80061; 83036; 85025

== ENCOUNTER 2024-07-20 08:15 | Outpatient (CLI) | payer OTHER, SELFPAY ==
--- OUTSIDE RECORDS SUMMARY | 2024-07-20 08:21 | XMS_ITS | Clinical Summary ---
Author Organization [facility] Address [address] [place] [address] Phone Care Team Providers Care Crutcher Helper Name Role Phone Ruben Amaya MD Unavailable Allergies Active Allergy Reactions Criticality Noted Date Comments Adhesive Tape Rash,Itching 10/27/2016 Medications ergocalciferol (VITAMIN D) 45931 UNIT CapsuleIndicatio ns:Vitamin D deficiency Take 1 [...] for malignant neoplasm of breast PATHOLOGY CYTOLOGY AIRCRAFT RIGGING AND CONTROLS MECHANIC Routine 12/11/2011 from Last 3 Months or [...] copy. Current study was also evaluated with [employer] version 7.2. CLINICAL: Routine screening. Patient has no complaints. No personal history of cancer. No family history of breast cancer. COMPARISONS: Comparison is made to exams dated: 01/15/2010, 01/25/2013, and 01/19/2012 [facility]. BREAST TISSUE:There are scattered fibroglandular densities in [...] exam. Electronically signed by: Kobi farr/morris:11/18/2018 16:24:53 Technical Aid: Christine Nugent (Jess), [facility] letter sent: Normal Exam Reading location: [facility] [...] to exams dated: 01/15/2010, 01/25/2013, and 01/19/2012 [facility]. BREAST TISSUE:There are scattered fibroglandular densities in [...] exam. Electronically signed by: Kobi farr/morris:11/18/2018 16:24:53 Technical Aid: Christine Nugent (R), [facility] letter sent: Normal Exam Reading location: [facility] BI-RADS: 1 Negative Ruben Amaya MD IMG MAMMO ORDERABLES F inal Result * PATHOLOGY CYTOLOGY AIRCRAFT RIGGING AND CONTROLS MECHANIC (12/11/2011) Specimen of unknown material (specimen) Ruben Amaya MD PATHOLOGY/CYTOLOGY ORD ERABLES Final Result from Last 3 Months or Most Recently Relevant to Health Maintenance Insurance [facility] Care Teams Crutcher Helper Relationship Specialty Start Date End Date Ruben Amaya MD Consulting Physician Obstetrics & Gynecology 08/11/18
--- OUTSIDE RECORDS SUMMARY | 2024-07-20 08:21 | XMS_ITS | Encounter Summary ---
Author Organization [facility] Address [address] [place] [address] Care Team Providers Care Aerodynamics Teacher Name Role Phone Unavailable Primary Care Provider Unavailabl e Encounter Details Date Type Department Care Team (Late st Contact Info) Description 05/23/2003 Outpatient Historical [facility] Internal Medicine [address] [address] Rafal Riley MD [address] [place] [id number] Social History Tobacco Use Types Packs/Day Years Used Date Smoking Tobacco: Never Assessed Comments Unknown Sex and Gender Information Value Date Recorded Sex Assigned at Not on file Legal Sex Female 3:15 AM INSTITUTION LIBRARIAN Gender Identity Not on file Sexual Orientation Not on file documented as of this encounter Last Filed Vital Signs Vital Sign Reading Time Taken Comments Blood Pressure 150/80 05/23/2003 4:00 PM INSTITUTION LIBRARIAN Pulse - - Temperature - - Respiratory Rate - - Oxygen Saturation - - Inhaled Oxygen Concentration - - Weight 96.6 kg (213 lb) 05/23/2003 4:00 PM INSTITUTION LIBRARIAN Height - - Body Mass Index - - documented in this encounter Plan of Treatment Not on file documented as of this encounter Visit Diagnoses Not on filedocumented in this encounter
--- OUTSIDE RECORDS SUMMARY | 2024-07-20 08:22 | XMS_ITS | Clinical Summary ---
Author Organization [facility] [place] 163 [facility] Address [address] adarsh [facility] [place] [address] Care Team Providers Care Lopper Name Role Phone Rajiv Nowak MD Primary Care Provider [phone] Allergies Active Allergy Reactions Criticality Noted Date [...] day Assessment & Plan (05/17/2020 10:24 AM MANAGER PERSONNEL SELECTION): Will recheck VitD levels today; if low [...] week Assessment & Plan (02/26/2021 10:05 AM MANAGER PERSONNEL SELECTION): Patient reports no significant work on weight [...] winter Assessment & Plan (05/17/2020 10:24 AM MANAGER PERSONNEL SELECTION): Not well controlled, patient reports she exercises [...] therapy Assessment & Plan (02/26/2021 10:04 AM MANAGER PERSONNEL SELECTION): Elevated total cholesterol, LDL cholesterol and triglycerides; [...] daily Assessment & Plan (02/26/2021 10:04 AM MANAGER PERSONNEL SELECTION): Stable, well controlled; blood pressure at target today and previous appointments Continue lisinopril -hydrochlorothiazide 20-25 daily Assessment & Plan (08/14/2020 2:10 PM CDT): -stable, well controlled; at target today -continue Zestoretic 20-25 today Assessment & Plan (05/17/2020 10:23 AM MANAGER PERSONNEL SELECTION): Well controlled, bp at target, will continue [...] on file Legal Sex Female 5:45 PM MANAGER PERSONNEL SELECTION Gender Identity Not on file Sexual Orientation [...] Stool DNA - Cologuard Negative Not Applicable [employer] (CLIA #:[id number]) Comment: A negative result indicates a low [...] Paul et al, N Engl J Med 2014;370(14):4898-5681) The normal value (reference range) for this assay is negative. COLOGUARD RE-SCREENING RECOMMENDATION: Periodic routine colorectal cancer screening is an important part of preventive healthcare for asymptomatic persons at average risk for colorectal cancer. Following a negative Cologuard result, the [place] [employer] Society and U.S. Multi-Society Task Force screening guidelines recommend a Cologuard re-screening interval of 3 years. References: [place] [employer] Society (ACS). Colorectal cancer prevention and early detection. [place], [place]: [place] [employer]; [updated 2015Jul 14]. https://www.cancer.org/cancer/gcnfa-zmctzh-ouyjnc/crbbtpvdr-ctuaaydts-eiwvmfo/ac s-rec ommendations.html. Accessed November 20, 2017; Adams DK, Vinod CR, Carmen MittalK, Colorectal Cancer Screening: Recommendations for Physicians and Patients from the U.S. Multi-Society Task Force on Colorectal Cancer Screening, Am J Gastroenterology 2017; 112:7152-0522. TEST TYPE: Composite algorithmic analysis of stool [...] interval of every 3 years by the [place] [employer] Society and U.S. Multi-Society Task Force. [...] can be accessed at the following location: [email or web address]/results. Additional description of the Cologuard test process, warnings and precautions can be found at www.cologuardtest.com. Rx only. Stool 07/04/2020 9:30 AM CDT 07/06/2020 1:45 PM CDT us Rajiv Nowak MD LAB BODY FLUIDS AND STOOL S ORDERABLES Final Result [facility] (CLIA #:[id number]) [place] [place] [address] * Genital fluid pap smear, thin prep and HPV (10/28/2018) 10/28/2018 us Historical Provider LAB CYTOLOGY ORDERABLES F inal Result from Last 3 Months or Most Recently Relevant to Health Maintenance Insurance [id number] [place] [address] Care Teams Lopper Relationship Specialty Start Date End Date Rajiv Nowak MD [address] [place] [address] PCP - General Family Medicine 05/17/20
--- OUTSIDE RECORDS SUMMARY | 2024-07-20 08:22 | XMS_ITS | Referral Summary ---
Author Organization [facility] [place] [facility] 163 [facility] Address [address] adarsh [place] [address] Care Team Providers Care Insulation Worker Apprentice Name Role Phone Rajiv Nowak MD Primary Care Provider [phone] Allergies Active Allergy Reactions Criticality Noted Date [...] day Assessment & Plan (05/17/2020 10:24 AM MARKETING PRODUCTION MANAGER): Will recheck VitD levels today; if [...] week Assessment & Plan (02/26/2021 10:05 AM MARKETING PRODUCTION MANAGER): Patient reports no significant work on [...] winter Assessment & Plan (05/17/2020 10:24 AM MARKETING PRODUCTION MANAGER): Not well controlled, patient reports she [...] therapy Assessment & Plan (02/26/2021 10:04 AM MARKETING PRODUCTION MANAGER): Elevated total cholesterol, LDL cholesterol and [...] daily Assessment & Plan (02/26/2021 10:04 AM MARKETING PRODUCTION MANAGER): Stable, well controlled; blood pressure at target today and previous appointments Continue lisinopril -hydrochlorothiazide 20-25 daily Assessment & Plan (08/14/2020 2:10 PM CDT): -stable, well controlled; at target today -continue Zestoretic 20-25 today Assessment & Plan (05/17/2020 10:23 AM MARKETING PRODUCTION MANAGER): Well controlled, bp at target, will [...] on file Legal Sex Female 5:45 PM MARKETING PRODUCTION MANAGER Gender Identity Not on file Sexual [...] Stool DNA - Cologuard Negative Not Applicable [employer] (CLIA #:[id number]) Comment: A negative result indicates a low [...] (Darren Winkler al, N Engl J Med 2014;370(14):3253-0798) The normal value (reference range) for this assay is negative. COLOGUARD RE-SCREENING RECOMMENDATION: Periodic routine colorectal cancer screening is an important part of preventive healthcare for asymptomatic persons at average risk for colorectal cancer. Following a negative Cologuard result, the [place] Cancer Society and U.S. Multi-Society Task Force screening guidelines recommend a Cologuard re-screening interval of 3 years. References: [place] [employer] Society (ACS). Colorectal cancer prevention and early detection. [place], [place]: [place] [employer]; [updated 2015Jul 14]. https://www.cancer.org/cancer/lmpyd-yeiyta-knjtko/rubczomua-qimqyrvlh-fmyrnyn/ac s-rec ommendations.html. Accessed November 20, 2017; Adams DK, Vinod CR, Carmen MittalK, Colorectal Cancer Screening: Recommendations for Physicians and Patients from the U.S. Multi-Society Task Force on Colorectal Cancer Screening, Am J Gastroenterology 2017; 112:2583-3490. TEST TYPE: Composite algorithmic analysis of stool [...] interval of every 3 years by the [place] Cancer Society and U.S. Multi-Society Task Force. [...] can be accessed at the following location: www.CASTT.com/results. Additional description of the Cologuard test process, warnings and precautions can be found at www.cologuardtest.com. Rx only. Stool 07/04/2020 9:30 AM CDT 07/06/2020 1:45 PM CDT us Rajiv Nowak MD LAB BODY FLUIDS AND STOOL S ORDERABLES Final Result [facility] (CLIA #:[id number]) [place] [address] * Genital fluid pap smear, thin prep and HPV (10/28/2018) 10/28/2018 us Historical Provider LAB CYTOLOGY ORDERABLES F inal Result from Last 3 Months or Most Recently Relevant to Health Maintenance Insurance [id number] [place] [address] Care Teams Insulation Worker Apprentice Relationship Specialty Start Date End Date Rajiv Nowak MD [address] [place] [address] PCP - General Family Medicine 05/17/20
--- OUTSIDE RECORDS SUMMARY | 2024-07-20 08:22 | XMS_ITS | Clinical Summary ---
Author Organization [facility] Address [address] [facility] Attn: Epic Prelude ADT [place] [address] Care Team Providers Care Second Shift Supervisor Name Role Phone Unavailable Primary Care Provider Unavailabl e Active Problems Problem Noted Date Diagnosed Date Unspecified essential hypertension 05/23/2003 Other and unspecified hyperlipidemia 05/23/2003 Social History Tobacco Use Types Packs/Day Years Used Date Smoking Tobacco: Never Assessed Comments Unknown Sex and Gender Information Value Date Recorded Sex Assigned at Not on file Legal Sex Female 3:15 AM LIPSTICK MOLDER Gender Identity Not on file Sexual Orientation Not on file Last Filed Vital Signs Vital Sign Reading Time Taken Comments Blood Pressure 150/80 05/23/2003 4:00 PM LIPSTICK MOLDER Pulse - - Temperature - - Respiratory Rate - - Oxygen Saturation - - Inhaled Oxygen Concentration - - Weight 96.6 kg (213 lb) 05/23/2003 4:00 PM LIPSTICK MOLDER Height - - Body Mass Index - [...]
--- OUTSIDE RECORDS SUMMARY | 2024-07-20 08:22 | XMS_ITS | Data Portability ---
Author Organization [place] [facility], Main Office Address [address] [place] [address] Assessment Encounter Date Assessment Date Assessment LastModified by Organization Details LastModified Time 06/04/2022 06/04/2022 52-year-old patient presents today for right knee pain. She has been experiencing pain for a few years. 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 She did physical therapy and had some relief in her pain. She feels like the pain has recently come back and is starting to affect her daily life. Since her pain has returned she has not tried physical therapy or anti-inflammatorie s. She has never tried cortisone injection. Review of systems per questionnaire imaging: x-ray show no acute bony abnormality, no fracture. Some narrowing joint space on the medial side. Physical Exam: Nonantalgic gait. Slight tenderness palpation over the medial side. Range of motion 0-150 with crepitus. Negative Ronit's. Stable Luis Enrique's with firm endpoint. Stable posterior drawer, varus and valgus stress. Normal patellar mobility. She can straight leg raise without extensor lag At this time we will send her to physical therapy to help stretching and strengthening her right knee. We also recommend that she start taking anti-inflammatorie s regularly. We discussed certain exercises that she would be able to do to not put as much pressure on her knees. We will see her back in 4 weeks after therapy to assess how she is doing. She is in agreement with this plan. Not available 06/04/2022 12:15:35 07/09/2022 07/09/2022 52-year-old fema le presenting for follow-up of her right knee. She tried a course physical therapy and anti-inflammatorie s without significant improvement. She returns for cortisone injection today. Physical exam unchanged. Medial tenderness palpation. Range of motion 0-150 with crepitus. Stable ligament exam. Negative Ronit's. We proceeded with the cortisone injection. She tolerated the procedure well. Will have her follow up as needed. Not available 07/18/2022 17:06:28 08/06/2022 08/06/2022 Haritha is a 52-year-old patient previously known to us for right knee pain. Since her initial visit she has done physical therapy and had a cortisone injection which relieved the pain in her knee. This past weekend she was stepping off of a ladder when she felt something in her knee pop and felt immediate pain. She experienced immediate swelling and was unable to bear weight for 2 days. She is now able to walk but it is painful and she still has swelling and stiffness. She has been taking ibuprofen, icing, and elevating but is still experiencing pain. Imaging: X-rays reviewed show no differences since her initial appointment in May. No acute bony abnormality, no fracture. Some narrowing joint space on the medial side. Physical exam: Antalgic gait. Edema. Tenderness palpation on medial side posterior to joint line. Range of motion 5-130 without crepitus. Positive Ronit's. Stable Luis Enrique's with firm endpoint. Stable posterior drawer, varus and valgus stress. Normal patellar mobility. Due to the nature of her injury and her pain and swelling since, at this time we would like to order an MRI to check for a meniscal and/or MCL injury. we will also order her a course of Mobic for anti-inflammatory therapy. We will see her back after the MRI to go over the results. She is in agreement with this plan. Not available 08/06/2022 20:18:42 08/13/2022 08/13/2022 52-year-old fema marysol presents for follow-up of her right knee. She has continued to have pain in her knee as well as mechanical symptoms of catching locking, which began after she she stepped off of a ladder and felt a pop in her knee earlier this month. She has not been able to do physical therapy after this episode, although she was doing well with anti-inflammatorie s and physical therapy prior to that new injury. She did get an MRI of her knee. Antalgic gait favoring the right side. 1+ effusion. She has tenderness palpation of the medial joint line. Positive Ronit's. She does have catching throughout the range of motion. 1A Luis Enrique's, stable posterior drawer, stable varus and valgus stress. MRI of the knee was reviewed, demonstrating a radial tear of the medial meniscus and edema in the medial knee. 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 She has a meniscus tear after an acute injury with mechanical symptoms which have limited her mobility and daily activities. She has failed conservative management with anti-inflammatorie s and activity modification, and has not been able to resume physical therapy. As such, I offered her a arthroscopic partial medial meniscectomy. We discussed in detail that this would be to address her mechanical symptoms. We discussed that there is about a 50% chance she may get improvement with her pain, and this will certainly not reverse any of the arthritic or degenerative changes that already exist in her knee. The alternative would be to continue conservative management, which she does not want. Risks, benefits, and alternatives to surgery were discussed with the patient. Risks include but are not limited to pain, stiffness, infection, bleeding, blood clot, injury to other structures including nerves or blood vessels, need for future surgery, and anesthesia risks. We discussed the goal of surgery is to improve symptoms but there is no guarantee of improvement and it is possible the patient's condition is worse after surgery. Patient agreed and would like to proceed. Not available 08/13/2022 23:33:56 09/05/2022 09/05/2022 52-year-old fema le presenting for her 1st postop appointment status post right knee partial medial meniscectomy. Overall she is feeling much better. Her mechanical symptoms from before surgery are resolved. She currently still has some soreness and stiffness, rates her pain as 5/10. She is walking without much difficulty. She still has some soreness at the end the day after she has been on her feet. She is taking ibuprofen occasionally. Incisions are clean dry intact without erythema drainage or other signs of infection. Sutures removed today and redressed with Steri-Strips. She has good knee range of motion, negative Ronit's. Neurovascular intact throughout. Overall doing well. She may continue activities as tolerated and taking ibuprofen as needed. Follow up in 2 weeks for recheck. Not available 09/05/2022 10:04:49 Plan of Treatment Reminders Order Date Submit Date Provider Last Modified By Organization Details Last Modified Time Details Appointments None recorded. Lab None recorded. Referral physical therapist referral - Please call pt to schedule for R knee. Thanks 2022 023 [facility], [address] , [facility], [place], [address], 3 12:59:14 Procedures injection/a spiration joint/bursa (PROC) - in office procedure, administere d by provider 2022 023 [email or web address] In-Office Order, Internal Use Only DO Not Attach Compendium DO Not Attach Compendium, Do Not Delete/merge, [id number] 3 10:03:20 Surgeries None recorded. Imaging MRI, knee, w/o contrast 2022 023 [facility], [address] [place] [address] , [place], [address], 3 09:53:03 Medication Orders Mobic 15 mg tablet [address] [id number], [address] , [place], [place], [id number], 3 01:26:26 Kenalog 10 mg/mL suspension for injection [address] [facility], [address] , [place], [place], [id number], 3 15:25:11 ropivacaine (PF) 5 mg/mL (0.5 %) injection solution [address] [facility] [address], [address] , [place], [place], [id number], 3 15:25:11 Patient TargetsNo targets recorded. Patient InstructionsNo instructions recorded. Reason for Referral Physical Therapist Referral for Pain of right knee joint R knee Please call pt to schedule for R knee. Thanks Referring Physician: Fani Marshall, Orthopedic Surgery, Encounter Date: 06/04/2022 Results Created Date Observation Date Name Description Value Unit Range Abnormal Flag Note LastModifiedBy Organization Detail LastModifiedTime 08/14/19 23 08/12/2022 MRI, knee, w/o contr ast No observ ation record ed. [address] [place], [address], 08/14/2022 10:03:52 08/17/19 23 08/15/2022 rhyth m strip , EKG* No observ ation record ed. [address] (Imaging) [address] [place] [address] [address] [place], [address], 08/20/2022 14:56:28 Result Notes None recorded. Problems Name Problem SNOMED Code Status Onset Date Resolution Date Notes Provider Name and Address Organization Details Recorded Time Pain of right knee joint 101431937393380 Active 2022 Fatou banks, [employer] 3 09:48:50 Tear of medial meniscus of knee 582517564 Active 2022 Jose Alberto Oconnell MD [address] [facility], [place], [address], [employer] 3 23:34:08 Problem Notes None recorded. Procedures Surgical History Date Name Laterality Status Provider Name and Address Organization Details Recorded Time 3 Ortho - Cortisone Injection completed Jose Alberto Oconnell MD [address] [facility], [address], [place], [address], [employer] 07/18/2022 17:05:02 Imaging Results Imaging Date Name Status LastModified by Organiz ation Details LastModified Time 08/12/2022 MRI, knee, w/o contrast completed [address] [place], [address], 08/14/2022 10:03:52 08/15/2022 rhythm strip, EKG* completed [address] ([facility]) [address], [place], [address], 08/20/2022 14:56:28 Procedure Notes None recorded. Medical Equipment None Reported. Allergies No known drug allergies Medications Name Sig Start Date Stop Date Status Note LastModified by Organization Details LastModified Time prednisone 10 mg tablet 06/04 completed Not Available Not Available Not Available hydrocodone 5 mg-acetamin ophen 325 mg tablet TAKE 1 TABLET BY MOUTH EVERY 6 HOURS active Not Available Not Available No t Available meloxicam 15 mg tablet TAKE 1 TABLET BY MOUTH EVERY DAY active Not Available Not Available No t Available Kenalog 10 mg/mL suspension for injection Take 10 mg by injection route. 2022 active [facility]: 0003- [phone]- 20 Not Available Not Available Not Available cephalexin 500 mg capsule TAKE 1 CAPSULE BY MOUTH EVERY 8 HOURS FOR 7 DAYS active Not Available Not Available No t Available lisinopril 20 mg-hydrochl orothiazide 25 mg tablet TAKE 1/2 TABLET BY MOUTH DAILY active Not Available Not Available No t Available methylpredn isolone 4 mg tablets in a dose pack FOLLOW PACKAGE DIRECTION S 06/04 completed Not Available Not Available Not Available amoxicillin 875 mg-potassiu m clavulanate 125 mg tablet TAKE 1 TABLET BY MOUTH EVERY 12 HOURS FOR 10 DAYS 06/04 completed Not Available Not Available Not Available ropivacaine (PF) 5 mg/mL (0.5 %) injection solution Take 20 mg by injection route. 2022 active [facility] [phone] -[phone] Not Available Not Available Not Available Vitals Date Recorded Body height Body mass index (BMI) Body weight Provider Name and Address Organization Details Last Updated DateTime 06/04/2022 162.56 cm 39.5 kg/m2 793216.25 g Fatou Fleming [employer] 06/04/2022 09:49:41 Date Recorded Body height Body mass index (BMI) Body weight Provider Name and Address Organization Details Last Updated DateTime 07/09/2022 162.56 cm 41.2 kg/m2 543740.17 g Nola Mendoza CNA [employer] 07/09/2022 09:45:53 Date Recorded Body height Body mass index (BMI) Body weight Provider Name and Address Organization Details Last Updated DateTime 08/06/2022 162.56 cm 41.2 kg/m2 800572.17 deidra Mendoza CNA [facility] [employer] 08/06/2022 11:38:56 Date Recorded Body height Body mass index (BMI) Body weight Provider Name and Address Organization Details Last Updated DateTime 08/13/2022 162.56 cm 41.2 kg/m2 523280.17 deidra Mendoza CNA [facility] [employer] [employer] 08/13/2022 10:10:55 Date Recorded Body height Body mass index (BMI) Body weight Provider Name and Address Organization Details Last Updated DateTime 09/05/2022 162.56 cm 41.2 kg/m2 777523.17 deidra Patrick [facility] [employer] [employer] 09/05/2022 09:55:43 Social History Question Answer Notes LastModified by Organizat ion Details LastModified Time Tobacco Smoking Status Never Smoker Fatou Senaleonardo banks [facility] [employer] 06/04/2022 09:51:09 What Is Your Level Of Alcohol Consumption? Occasional [email or web address] Information not available 06/04/2022 What Was The Date Of Your Most Recent Tobacco Screening? 06/04/2022 [email or web address] Information not available 06/04/2022 Sex: Unknown Functional Status None recorded. Mental Status None recorded. Family History Relationship Description Onset Age of this Age Resolved Age Notes LastModified by Organization Details LastModified Time Maternal Grandmother Family history of malignant neoplasm [email or web address] Not available 06/04 09:50:33 Father Hypertensive disorder [email or web address] Not available 06/04 09:50:42 Father Diabetes mellitus Not available 06/04 09:50:52 Medical History Condition Response HYPERTENSION Y Gynecological HistoryNo gynecological history recorded. Obstetrics History GPAL:G 0 P 0 0 0 0 Past Encounters Encounter ID Performer Location Encounter Start Date Encounter Closed Date Diagnosis/Indication Diagnosis SNOMED-CT Code Diagnosis ICD10 Code Diagnosis Note [id number] Fani Marshall NP [facility] [address] [place] [address] 06/04/2022 09:31:19 06/04/2022 10:38:50 Pain of right knee joint 1087651577 18922 M25.561 [id number] Jose Alberto Oconnell MD [facility] [address] [place] [address] 07/09/2022 09:43:23 07/09/2022 10:05:33 Pain of right knee joint 3863799277 99685 M25.561 [id number] Fani Marshall NP [facility] [address] [place] [address] 08/06/2022 11:37:44 08/06/2022 12:25:07 Pain of right knee joint 1008565500 10035 M25.561 [id number] Jose Alberto Oconnell MD [facility] [address] [place] [address] 08/13/2022 10:04:01 08/13/2022 10:45:50 Pain of right knee joint 9396539374 38100 M25.561 Tear of me dial meniscus of knee 791796317 S83.241A [id number] Jose Alberto Oconnell MD [facility] [address] [place] [address] 09/05/2022 09:54:07 09/05/2022 10:05:47 Tear of medial meniscus of knee 877085776 S83.241A Pain of ri ght knee joint 1684640173 96096 M25.561 Health Concerns Section Related Observation LastModified by Organization Detai ls LastModified Time None Recorded Concern Status LastModified by Organization Details LastModified Time None Recorded Advance Directives Directive None Recorded Payers Encounter Date Sequence Insurance Name Policy Number Policy Chapin Covered Member ID Chapin Member ID Guarantor Name 06/04/2022 1 [facility] [id number] Carlyle Landon [id number] Haritha Landon 07/09/2022 1 R [id number] Carlyle Landon [id number] Haritha Landon 08/06/2022 1 R [id number] Carlyle Landon [id number] Haritha Landon 08/13/2022 1 [facility] [id number] Carlyle Landon [id number] Haritha Landon 09/05/2022 1 [facility] [id number] Carlyle Landon [id number] Haritha Landon OBGyn Episode No OBEpisode recorded.
[2024-07-20 20:14] LABS: Basophils Absolute Auto 0.1 K/mm3 (0.0-0.1); Basophils Percent Auto 0.6 % (0.2-1.2); Eosinophils Absolute Auto 0.3 K/mm3 (0-0.3); Eosinophils Percent Auto 2.3 % (0-4.4); Hematocrit 49.8 % (37.0-47.0); Hemoglobin 15.8 g/dL (12.0-15.0); Immature Granulocyte Absolute 0.03 K/mm3 (0.00-0.031); Immature Granulocyte Percent A 0.3 % (0-0.5); Lymphocytes Absolute Auto 4.49 K/mm3 (0.9-3.2); Lymphocytes Percent Auto 41.8 % (18.3-44.2); Mean Corpuscular HGB Conc 31.7 g/dl (32-36); Mean Corpuscular Hemoglobin 29.1 pg (26-34); Mean Corpuscular Volume 91.7 fl (80-100); Mean Platelet Volume 10.3 fl (7.4-10.4); Monocytes Absolute Auto 0.9 K/mm3 (0.1-0.6); Monocytes Percent Auto 7.9 % (2.6-8.5); Neutrophils Absolute Auto 5.1 K/mm3 (1.3-6.7); Neutrophils Percent Auto 47.1 % (45.5-73.1); Platelet Count Result 279 k/mm3 (150-375); Red Blood Count 5.43 M/mm3 (4.2-5.4); Red Cell Distribution Width 13.2 % (11.5-14.5); White Blood Count 10.7 K/mm3 (4.5-10.0)
== END 2024-07-20 08:16 | disposition home or self-care (01) ==
LOC: ANHBWCLAB 08:16
PROVIDERS: PCP Nurse Practitioner Adult Health; Visit Provider Nurse Practitioner Adult Health
DX: D72.829 Elevated white blood cell count, unspecified (principal)
CPT/HCPCS: 36415; 85025

== ENCOUNTER 2024-08-03 08:22 | Outpatient (CLI) | payer OTHER, SELFPAY ==
--- OUTSIDE RECORDS SUMMARY | 2024-08-03 08:33 | XMS_ITS | Referral Summary ---
Author Organization [facility] Address [address] [place] [address] Care Team Providers Care Wardrobe Specialist Name Role Phone Rajiv Nowak MD Primary Care Provider [phone] Allergies Active Allergy Reactions Criticality Noted Date [...] day Assessment & Plan (05/17/2020 10:24 AM PHOTOGRAPH PRINTER): Will recheck VitD levels today; if low [...] week Assessment & Plan (02/26/2021 10:05 AM PHOTOGRAPH PRINTER): Patient reports no significant work on weight [...] winter Assessment & Plan (05/17/2020 10:24 AM PHOTOGRAPH PRINTER): Not well controlled, patient reports she exercises [...] therapy Assessment & Plan (02/26/2021 10:04 AM PHOTOGRAPH PRINTER): Elevated total cholesterol, LDL cholesterol and triglycerides; [...] daily Assessment & Plan (02/26/2021 10:04 AM PHOTOGRAPH PRINTER): Stable, well controlled; blood pressure at target today and previous appointments Continue lisinopril -hydrochlorothiazide 20-25 daily Assessment & Plan (08/14/2020 2:10 PM CDT): -stable, well controlled; at target today -continue Zestoretic 20-25 today Assessment & Plan (05/17/2020 10:23 AM PHOTOGRAPH PRINTER): Well controlled, bp at target, will continue [...] on file Legal Sex Female 5:45 PM PHOTOGRAPH PRINTER Gender Identity Not on file Sexual Orientation [...] Stool DNA - Cologuard Negative Not Applicable [employer] (CLIA #:[id number]) Comment: A negative result indicates a low [...] (Darren Winkler al, N Engl J Med 2014;370(14):3671-7109) The normal value (reference range) for this assay is negative. COLOGUARD RE-SCREENING RECOMMENDATION: Periodic routine colorectal cancer screening is an important part of preventive healthcare for asymptomatic persons at average risk for colorectal cancer. Following a negative Cologuard result, the [place] Cancer Society and U.S. Multi-Society Task Force screening guidelines recommend a Cologuard re-screening interval of 3 years. References: [place] Cancer Society (ACS). Colorectal cancer prevention and early detection. [place], [place]: [place] Cancer Society; [updated 2015Jul 14]. https://www.cancer.org/cancer/gpylm-htiyix-ufgzih/crohrhbwb-htavpdjqy-ogpaqzl/ac s-rec ommendations.html. Accessed November 20, 2017; Adams DK, Vinod CR, Carmen MittalK, Colorectal Cancer Screening: Recommendations for Physicians and Patients from the U.S. Multi-Society Task Force on Colorectal Cancer Screening, Am J Gastroenterology 2017; 112:4160-0087. TEST TYPE: Composite algorithmic analysis of stool [...] interval of every 3 years by the [place] Cancer Society and U.S. Multi-Society Task Force. [...] can be accessed at the following location: www.[employer]com/results. Additional description of the Cologuard test process, warnings and precautions can be found at www.cologuardtest.com. Rx only. Stool 07/04/2020 9:30 AM CDT 07/06/2020 1:45 PM CDT us Rajiv Nowak MD LAB BODY FLUIDS AND STOOL S ORDERABLES Final Result [facility] (CLIA #:[id number]) [place] [address] * Genital fluid pap smear, thin prep and HPV (10/28/2018) 10/28/2018 us Historical Provider LAB CYTOLOGY ORDERABLES F inal Result from Last 3 Months or Most Recently Relevant to Health Maintenance Insurance [id number] [place] [address] [facility] Address: [address] [address] [facility] Address: [address] [address] [facility] Address: [address] [address] Care Teams Wardrobe Specialist Relationship Specialty Start Date End Date Rajiv Nowak MD [address] [place] [address] PCP - General Family Medicine 05/17/20
--- OUTSIDE RECORDS SUMMARY | 2024-08-03 08:33 | XMS_ITS | Encounter Summary ---
Author Organization [facility] Address [address] [place] [address] Care Team Providers Care Machine Brush Maker Name Role Phone Unavailable Primary Care Provider Unavailabl e Encounter Details Date Type Department Care Team (Late st Contact Info) Description 05/23/2003 Outpatient Historical [facility] Internal Medicine [address] [address] Rafal Riley MD [address] [place] [phone] Social History Tobacco Use Types Packs/Day Years Used Date Smoking Tobacco: Never Assessed Comments Unknown Sex and Gender Information Value Date Recorded Sex Assigned at Not on file Legal Sex Female 3:15 AM RN INFORMATICS Gender Identity Not on file Sexual Orientation Not on file documented as of this encounter Last Filed Vital Signs Vital Sign Reading Time Taken Comments Blood Pressure 150/80 05/23/2003 4:00 PM RN INFORMATICS Pulse - - Temperature - - Respiratory Rate - - Oxygen Saturation - - Inhaled Oxygen Concentration - - Weight 96.6 kg (213 lb) 05/23/2003 4:00 PM RN INFORMATICS Height - - Body Mass Index - - documented in this encounter Plan of Treatment Not on file documented as of this encounter Visit Diagnoses Not on filedocumented in this encounter
--- OUTSIDE RECORDS SUMMARY | 2024-08-03 08:33 | XMS_ITS | Clinical Summary ---
Author Organization [facility] Address [address] [place] [address] Phone Care Team Providers Care Nurse Informatics Educator Name Role Phone Ruben Amaya MD Unavailable [phone] Allergies Active Allergy Reactions Criticality Noted Date Comments Adhesive Tape Rash,Itching 10/27/2016 Medications ergocalciferol (VITAMIN D) 07686 UNIT CapsuleIndicatio ns:Vitamin D deficiency Take 1 [...] for malignant neoplasm of breast PATHOLOGY CYTOLOGY MANAGER BUDGET Routine 12/11/2011 from Last 3 Months or [...] copy. Current study was also evaluated with [employer] version 7.2. CLINICAL: Routine screening. Patient has no complaints. No personal history of cancer. No family history of breast cancer. COMPARISONS: Comparison is made to exams dated: 01/15/2010, 01/25/2013, and 01/19/2012 [facility]. BREAST TISSUE:There are scattered fibroglandular densities [...] exam. Electronically signed by: Kobi farr/morris:11/18/2018 16:24:53 Paint Process Engineer: Christine Nugent (Jess), [facility] letter sent: Normal Exam Reading location: [place] [...] to exams dated: 01/15/2010, 01/25/2013, and 01/19/2012 [facility]. BREAST TISSUE:There are scattered fibroglandular densities [...] exam. Electronically signed by: Kobi farr/morris:11/18/2018 16:24:53 Paint Process Engineer: Christine Nugent (R), [facility] letter sent: Normal Exam Reading location: [facility] BI-RADS: 1 Negative Ruben Amaya MD IMG MAMMO ORDERABLES F inal Result * PATHOLOGY CYTOLOGY MANAGER BUDGET (12/11/2011) Specimen of unknown material (specimen) Ruben Amaya MD PATHOLOGY/CYTOLOGY ORD ERABLES Final Result from Last 3 Months or Most Recently Relevant to Health Maintenance Insurance [facility] Care Teams Nurse Informatics Educator Relationship Specialty Start Date End Date Ruben Amaya MD Consulting Physician Obstetrics & Gynecology 08/11/18
--- OUTSIDE RECORDS SUMMARY | 2024-08-03 08:33 | XMS_ITS | Clinical Summary ---
Author Organization [facility] [place] 163 [facility] Address [address] [place] [address] Care Team Providers Care Wildlife Enforcement Major Name Role Phone Rajiv Nowak MD Primary Care Provider [phone] Allergies Active Allergy Reactions Criticality Noted Date [...] day Assessment & Plan (05/17/2020 10:24 AM CRYPTOLOGIST): Will recheck VitD levels today; if low [...] week Assessment & Plan (02/26/2021 10:05 AM CRYPTOLOGIST): Patient reports no significant work on weight [...] winter Assessment & Plan (05/17/2020 10:24 AM CRYPTOLOGIST): Not well controlled, patient reports she exercises [...] therapy Assessment & Plan (02/26/2021 10:04 AM CRYPTOLOGIST): Elevated total cholesterol, LDL cholesterol and triglycerides; [...] daily Assessment & Plan (02/26/2021 10:04 AM CRYPTOLOGIST): Stable, well controlled; blood pressure at target today and previous appointments Continue lisinopril -hydrochlorothiazide 20-25 daily Assessment & Plan (08/14/2020 2:10 PM CDT): -stable, well controlled; at target today -continue Zestoretic 20-25 today Assessment & Plan (05/17/2020 10:23 AM CRYPTOLOGIST): Well controlled, bp at target, will continue [...] on file Legal Sex Female 5:45 PM CRYPTOLOGIST Gender Identity Not on file Sexual Orientation [...] Stool DNA - Cologuard Negative Not Applicable [employer] (CLIA #:[id number]) Comment: A negative result indicates a low [...] Paul et al, N Engl J Med 2014;370(14):6827-9665) The normal value (reference range) for this assay is negative. COLOGUARD RE-SCREENING RECOMMENDATION: Periodic routine colorectal cancer screening is an important part of preventive healthcare for asymptomatic persons at average risk for colorectal cancer. Following a negative Cologuard result, the [place] Cancer Society and U.S. Multi-Society Task Force screening guidelines recommend a Cologuard re-screening interval of 3 years. References: [place] Cancer Society (ACS). Colorectal cancer prevention and early detection. [place], [place]: [place] Cancer Society; [updated 2015Jul 14]. https://www.cancer.org/cancer/sufnr-pfhgxe-kycwnc/mztwtguoj-hzrvauexw-csxioex/ac s-rec ommendations.html. Accessed November 20, 2017; Adams DK, Vinod CR, Carmen MittalK, Colorectal Cancer Screening: Recommendations for Physicians and Patients from the U.S. Multi-Society Task Force on Colorectal Cancer Screening, Am J Gastroenterology 2017; 112:1635-0367. TEST TYPE: Composite algorithmic analysis of stool [...] every 3 years by the [place] Cancer Society and U.S. Multi-Society Task Force. [...] can be accessed at the following location: www.[employer]/results. Additional description of the Cologuard test process, warnings and precautions can be found at www.cologuardtest.com. Rx only. Stool 07/04/2020 9:30 AM CDT 07/06/2020 1:45 PM CDT us Rajiv Nowak MD LAB BODY FLUIDS AND STOOL S ORDERABLES Final Result [facility] (CLIA #:[id number]) [place] [address] * Genital fluid pap smear, thin prep and HPV (10/28/2018) 10/28/2018 us Historical Provider LAB CYTOLOGY ORDERABLES F inal Result from Last 3 Months or Most Recently Relevant to Health Maintenance Insurance [id number] [place] [address] Care Teams Wildlife Enforcement Major Relationship Specialty Start Date End Date Rajiv Nowak MD [address] [place] [address] PCP - General Family Medicine 05/17/20
--- OUTSIDE RECORDS SUMMARY | 2024-08-03 08:33 | XMS_ITS | Clinical Summary ---
Author Organization [facility] Address [address] [facility] Attn: Epic Prelude ADT [place] [address] Care Team Providers Care Reuse Technician Name Role Phone Unavailable Primary Care Provider Unavailabl e Active Problems Problem Noted Date Diagnosed Date Unspecified essential hypertension 05/23/2003 Other and unspecified hyperlipidemia 05/23/2003 Social History Tobacco Use Types Packs/Day Years Used Date Smoking Tobacco: Never Assessed Comments Unknown Sex and Gender Information Value Date Recorded Sex Assigned at Not on file Legal Sex Female 3:15 AM BABY FORMULA MIXER Gender Identity Not on file Sexual Orientation Not on file Last Filed Vital Signs Vital Sign Reading Time Taken Comments Blood Pressure 150/80 05/23/2003 4:00 PM BABY FORMULA MIXER Pulse - - Temperature - - Respiratory Rate - - Oxygen Saturation - - Inhaled Oxygen Concentration - - Weight 96.6 kg (213 lb) 05/23/2003 4:00 PM BABY FORMULA MIXER Height - - Body Mass Index - [...]
--- OUTSIDE RECORDS SUMMARY | 2024-08-03 08:33 | XMS_ITS | Data Portability ---
Author Organization [place] - [facility], Main Office Address [address] [place] [address] Assessment Encounter Date Assessment Date Assessment LastModified by Organization Details LastModified Time 06/04/2022 06/04/2022 52-year-old patient presents today for right knee pain. She has been experiencing pain for a few years. 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 Thanks 2022 023 [facility], [address] , [facility], [place], [address], 3 12:59:14 Procedures injection/a spiration joint/bursa (PROC) - in office procedure, administere d by provider 2022 023 [email or web address] r1 In-Office Order, Internal Use Only DO Not Attach Compendium DO Not Attach Compendium, Do Not Delete/merge, [address] 3 10:03:20 Surgeries None recorded. Imaging MRI, knee, w/o contrast 2022 023 [facility], [address] [place] [address] , [place], [address], 3 09:53:03 Medication Orders Mobic 15 mg tablet [address] [facility], [address] , [place], [place], [id number], 3 01:26:26 Kenalog 10 mg/mL suspension for injection [address] [facility], [address] , [place], [place], [id number], 3 15:25:11 ropivacaine (PF) 5 mg/mL (0.5 %) injection solution [address] [facility], [address] , [place], [place], [id number], 3 15:25:11 Patient TargetsNo targets recorded. Patient [...] contr ast No observ ation record ed. [address] [place], [address], 08/14/2022 10:03:52 08/17/19 23 08/15/2022 rhyth m strip , EKG* No observ ation record ed. [address] (Imaging) [address] [place] [address] [address], [address], 08/20/2022 14:56:28 Result Notes None recorded. Problems Name Problem SNOMED Code Status Onset Date Resolution Date Notes Provider Name and Address Organization Details Recorded Time Pain of right knee joint 663520323162931 Active 2022 Fatou banks, [employer] 3 09:48:50 Tear of medial meniscus of knee 671034033 Active 2022 Jose Alberto Oconnell MD [address] [facility], [place], [address], [employer] 3 23:34:08 Problem Notes None recorded. Procedures Surgical History Date Name Laterality Status Provider Name and Address Organization Details Recorded Time 3 Ortho - Cortisone Injection completed Jose Alberto Oconnell MD [address] [facility], [place], [address], [employer] 07/18/2022 17:05:02 Imaging Results Imaging Date Name Status LastModified by Organiz ation Details LastModified Time 08/12/2022 MRI, knee, w/o contrast completed [address] [place], [address], 08/14/2022 10:03:52 08/15/2022 rhythm strip, EKG* completed [address] ([facility]) [address], [place], [address], 08/20/2022 14:56:28 Procedure Notes None recorded. Medical [...] 10 mg by injection route. 2022 active [facility]: 0003- [phone]- 20 Not Available Not Available [...] 20 mg by injection route. 2022 active [facility] [address]- 01 Not Available Not Available Not Available Vitals Date Recorded Body height Body mass index (BMI) Body weight Provider Name and Address Organization Details Last Updated DateTime 06/04/2022 162.56 cm 39.5 kg/m2 661315.25 g Fatou Fleming [employer] 06/04/2022 09:49:41 Date Recorded Body height Body mass index (BMI) Body weight Provider Name and Address Organization Details Last Updated DateTime 07/09/2022 162.56 cm 41.2 kg/m2 384705.17 g Nola Mendoza CNA [employer] 07/09/2022 09:45:53 Date Recorded Body height Body mass index (BMI) Body weight Provider Name and Address Organization Details Last Updated DateTime 08/06/2022 162.56 cm 41.2 kg/m2 093009.17 deidra Mendoza CNA [facility] Event [employer] [facility] 08/06/2022 11:38:56 Date Recorded Body height Body mass index (BMI) Body weight Provider Name and Address Organization Details Last Updated DateTime 08/13/2022 162.56 cm 41.2 kg/m2 489621.17 deidra Mendoza CNA [facility] [employer] 08/13/2022 10:10:55 Date Recorded Body height Body mass index (BMI) Body weight Provider Name and Address Organization Details Last Updated DateTime 09/05/2022 162.56 cm 41.2 kg/m2 259125.17 deidra Patrick [facility] [employer] 09/05/2022 09:55:43 Social History Question Answer Notes LastModified by [employer] Details LastModified Time Tobacco Smoking Status Never Smoker Fatou Fleming darren [facility] [employer] 06/04/2022 09:51:09 What Was The Date Of Your Most Recent Tobacco Screening? 06/04/2022 [email or web address] Information not available 06/04/2022 Sex: Unknown Functional Status Question Answer Note LastModified by [employer] Details LastModified Time What is your level of alcohol consumption? Occasional [email or web address] Information not available 06/04/2022 Mental Status None recorded. Family History Relationship Description Onset Age of this Age Resolved Age Notes LastModified by Organization Details LastModified Time Maternal Grandmother Family history of malignant neoplasm [email or web address] Not available 06/04 09:50:33 Father Hypertensive disorder [email or web address] Not available 06/04 09:50:42 Father Diabetes mellitus [email or web address] Not available 06/04 09:50:52 Medical History Condition Response HYPERTENSION Y Gynecological HistoryNo gynecological history recorded. Obstetrics History GPAL:G 0 P 0 0 0 0 Past Encounters Encounter ID Performer Location Encounter Start Date Encounter Closed Date Diagnosis/Indication Diagnosis SNOMED-CT Code Diagnosis ICD10 Code Diagnosis Note [id number] Fani Juilfs, OPERATIONS EXAMINER [facility] [address] [place] [address] 06/04/2022 09:31:19 06/04/2022 10:38:50 Pain of right knee joint 3296875881 75404 M25.561 [id number] Jose Alberto Oconnell MD [facility] [address] [place] [address] 07/09/2022 09:43:23 07/09/2022 10:05:33 Pain of right knee joint 7948938287 17191 M25.561 [id number] Fani VEGA Marshall [facility] [address] [place] [address] 08/06/2022 11:37:44 08/06/2022 12:25:07 Pain of right knee joint 3354735237 30474 M25.561 [id number] Jose Alberto Oconnell MD [facility] [place] [address] [place] [address] 08/13/2022 10:04:01 08/13/2022 10:45:50 Pain of right knee joint 3357159930 36357 M25.561 Tear of me dial meniscus of knee 358150903 S83.241A [id number] Jose Alberto Oconnell MD [facility] [place] [address] [place] [address] 09/05/2022 09:54:07 09/05/2022 10:05:47 Tear of medial meniscus of knee 191429364 S83.241A Pain of ri ght knee joint 2367795887 32484 M25.561 Health Concerns Section Related Observation LastModified by Organization Detai ls LastModified Time None Recorded Concern Status LastModified by Organization Details LastModified Time None Recorded Advance Directives Directive None Recorded Payers Encounter Date Sequence Insurance Name Policy Number Policy Chapin Covered Member ID Chapin Member ID Guarantor Name 06/04/2022 1 [facility] [id number] Carlyle Landon [id number] Haritha Landon 07/09/2022 1 [facility] [id number] Carlyle Landon [id number] Haritha Landon 08/06/2022 1 [facility] [id number] Carlyle Landon [id number] Haritha Landon 08/13/2022 1 [facility] [id number] Carlyle Landon [id number] Haritha Landon 09/05/2022 1 [facility] [id number] Carllye Landon [id number] Haritha Landon OBGyn Episode No OBEpisode recorded.
[2024-08-03 19:34] LABS: Hematocrit 48.5 % (37.0-47.0); Hemoglobin 15.2 g/dL (12.0-15.0); Mean Corpuscular HGB Conc 31.3 g/dl (32-36); Mean Corpuscular Hemoglobin 28.8 pg (26-34); Mean Corpuscular Volume 91.9 fl (80-100); Mean Platelet Volume 10.9 fl (7.4-10.4); Platelet Count Result 258 k/mm3 (150-375); Red Blood Count 5.28 M/mm3 (4.2-5.4); Red Cell Distribution Width 13.2 % (11.5-14.5); White Blood Count 11.5 K/mm3 (4.5-10.0)
[2024-08-03 20:15] LABS: Band Neutrophils Percent 1 % (0-6); Eosinophils Absolute Manual 0.23 K/mm3 (0.02-0.50); Eosinophils Percent Manual 2 % (0-4); Lymphocytes Absolute Manual 5.86 K/mm3 (1.1-4.5); Monocytes Absolute Manual 0.57 K/mm3 (0.1-0.90); Monocytes Percent Manual 5 % (3-9); Neutrophils Absolute Manual 4.83 K/mm3 (1.7-7.2); Neutrophils Percent Manual 41 % (46-73); Platelet Estimate Adequate (Adequate); Total Cells Counted 100
[2024-08-03 20:16] LABS: Hypochromasia 1+; Schistocytes None Seen
== END 2024-08-03 08:23 | disposition home or self-care (01) ==
LOC: ANHBWCLAB 08:23
PROVIDERS: PCP Nurse Practitioner Adult Health; Visit Provider Nurse Practitioner Adult Health
DX: D72.829 Elevated white blood cell count, unspecified (principal)
CPT/HCPCS: 36415; 85025

== ENCOUNTER 2024-08-18 16:02 | Outpatient (CLI) | payer OTHER, SELFPAY ==
--- NOTE | ~2024-08-18 | MM_ITS ---
EXAMINATION: MM screening jad BI w monster HISTORY: Screening TECHNIQUE: Craniocaudal and mediolateral oblique 3-D tomosynthesis images were obtained and synthetic 2-D images were generated. CAD analysis was submitted and interpreted. COMPARISON: No prior mammogram is available for comparison at this institution. BREAST PARENCHYMAL COMPOSITION: Not dense: There are scattered areas of fibroglandular density. FINDINGS: There is no evidence of suspicious mass, calcification, or architectural distortion to sugg est malignancy in either breast. There has been no suspicious interval change. IMPRESSION: 1. No mammographic evidence of malignancy. 2. Recommend routine screening mammography in one year. BI-RADS Category 1: Negative Reviewed, dictated and finalized at location A.
--- OUTSIDE RECORDS SUMMARY | 2024-08-18 16:22 | XMS_ITS | Encounter Summary ---
Author Organization [facility] Address [address] [place] [address] Care Team Providers Care Distribution Lineman Name Role Phone Unavailable Primary Care Provider Unavailabl e Encounter Details Date Type Department Care Team ([facility] Contact Info) Description 05/23/2003 Outpatient Historical [facility] Internal Medicine [address] [address] Rafal Riley MD [address] [place] [address] Social History Tobacco Use Types Packs/Day Years Used Date Smoking Tobacco: Never Assessed Comments Unknown Sex and Gender Information Value Date Recorded Sex Assigned at Not on file Legal Sex Female 3:15 AM MARINE GEAR KEEPER Gender Identity Not on file Sexual Orientation Not on file documented as of this encounter Last Filed Vital Signs Vital Sign Reading Time Taken Comments Blood Pressure 150/80 05/23/2003 4:00 PM MARINE GEAR KEEPER Pulse - - Temperature - - Respiratory Rate - - Oxygen Saturation - - Inhaled Oxygen Concentration - - Weight 96.6 kg (213 lb) 05/23/2003 4:00 PM MARINE GEAR KEEPER Height - - Body Mass Index - - documented in this encounter Plan of Treatment Upcoming Encounters Date Type Department Care Team (Late Contact Info) Description 12/27/2024 10:30 AM CDT Office Visit [facility] Oncology and Hematology - [place] [place] [address] Sarkis Umanzor MD [address] [facility] [address] [place] [address] documented as of this encounter Visit Diagnoses Not on filedocumented in this encounter
--- OUTSIDE RECORDS SUMMARY | 2024-08-18 16:22 | XMS_ITS | Clinical Summary ---
Author Organization [facility] [address] [facility] Address [address] [place] [address] Care Team Providers Care Supervisor Pleating Name Role Phone Rajiv Nowak MD Primary Care Provider [phone] [phone] Allergies Active Allergy Reactions Criticality Noted Date [...] day Assessment & Plan (05/17/2020 10:24 AM YARD TRUCK DRIVER): Will recheck VitD levels today; if low [...] week Assessment & Plan (02/26/2021 10:05 AM YARD TRUCK DRIVER): Patient reports no significant work on weight [...] winter Assessment & Plan (05/17/2020 10:24 AM YARD TRUCK DRIVER): Not well controlled, patient reports she exercises [...] therapy Assessment & Plan (02/26/2021 10:04 AM YARD TRUCK DRIVER): Elevated total cholesterol, LDL cholesterol and triglycerides; [...] daily Assessment & Plan (02/26/2021 10:04 AM YARD TRUCK DRIVER): Stable, well controlled; blood pressure at target today and previous appointments Continue lisinopril -hydrochlorothiazide 20-25 daily Assessment & Plan (08/14/2020 2:10 PM CDT): -stable, well controlled; at target today -continue Zestoretic 20-25 today Assessment & Plan (05/17/2020 10:23 AM YARD TRUCK DRIVER): Well controlled, bp at target, will continue [...] on file Legal Sex Female 5:45 PM YARD TRUCK DRIVER Gender Identity Not on file Sexual Orientation [...] 9:58 AM CDT Height 162.6 cm (5' 4) 09/12/2021 9:58 AM CDT Body Mass Index [...] Cancer Screening-DNA Stool 07/05/2023 07/04/2020 Influenza Vaccine (Season Ended) 2024 12/02/2016, 01/13/2013, 01/13/2013, Additional history exists DTaP/Tdap/Td Vaccine [...] Stool DNA - Cologuard Negative Not Applicable [employer] (CLIA #:[id number]) Comment: A negative result indicates a low [...] Paul et al, N Engl J Med 2014;370(14):5726-4798) The normal value (reference range) for this assay is negative. COLOGUARD RE-SCREENING RECOMMENDATION: Periodic routine colorectal cancer screening is an important part of preventive healthcare for asymptomatic persons at average risk for colorectal cancer. Following a negative Cologuard result, the [place] Cancer Society and U.S. Multi-Society Task Force screening guidelines recommend a Cologuard re-screening interval of 3 years. References: [place] Cancer Society (ACS). Colorectal cancer prevention and early detection. [place], [place]: [place] Cancer Society; [updated 2015Jul 14]. https://www.cancer.org/cancer/jkxgm-bxwigs-xesiei/andpcylxb-tyjkcicdn-qqqwepd/ac s-rec ommendations.html. Accessed November 20, 2017; Adams DK, Vinod CR, Carmen MittalK, Colorectal Cancer Screening: Recommendations for Physicians and Patients from the U.S. Multi-Society Task Force on Colorectal Cancer Screening, Am J Gastroenterology 2017; 112:3217-9623. TEST TYPE: Composite algorithmic analysis of stool [...] interval of every 3 years by the [place] Cancer Society and U.S. Multi-Society Task Force. [...] can be accessed at the following location: www.[employer]/results. Additional description of the Cologuard test process, warnings and precautions can be found at www.cologuardtest.com. Rx only. Stool 07/04/2020 9:30 AM CDT 07/06/2020 1:45 PM CDT us Rajiv Nowak MD LAB BODY FLUIDS AND STOOL S ORDERABLES Final Result [facility] (CLIA #:[id number]) [place] [address] [place] [address] * Genital fluid pap smear, thin prep and HPV (10/28/2018) 10/28/2018 us Historical Provider LAB CYTOLOGY ORDERABLES F inal Result from Last 3 Months or Most Recently Relevant to Health Maintenance Insurance [id number] [place] [address] Care Teams Supervisor Pleating Relationship Specialty Start Date End Date Rajiv Nowak MD [address] [place] [address] PCP - General Family Medicine 05/17/20
--- OUTSIDE RECORDS SUMMARY | 2024-08-18 16:22 | XMS_ITS | Clinical Summary ---
Author Organization [facility] Address [address] [place] [address] Phone Care Team Providers Care Wire Wheeler Name Role Phone Ruben Amaya MD Unavailable Allergies Active Allergy Reactions Criticality Noted Date Comments Adhesive Tape Rash,Itching 10/27/2016 Medications ergocalciferol (VITAMIN D) 85424 UNIT CapsuleIndicatio ns:Vitamin D deficiency Take 1 [...] 10:02 AM CDT Height 163.8 cm (5' 4.5) 09/20/2018 10 :02 AM CDT measured today [...] for malignant neoplasm of breast PATHOLOGY CYTOLOGY SILK SCREEN PRINTER MACHINE Routine 12/11/2011 from Last 3 Months or [...] copy. Current study was also evaluated with Clicknation version 7.2. CLINICAL: Routine screening. Patient has no complaints. No personal history of cancer. No family history of breast cancer. COMPARISONS: Comparison is made to exams dated: 01/15/2010, 01/25/2013, and 01/19/2012 [facility]. BREAST TISSUE:There are scattered fibroglandular densities [...] exam. Electronically signed by: Kobi farr/morris:11/18/2018 16:24:53 J2Ee Engineer: Christine Nugent (Jess), [facility] letter sent: Normal Exam Reading location: [...] to exams dated: 01/15/2010, 01/25/2013, and 01/19/2012 [facility]. BREAST TISSUE:There are scattered fibroglandular densities [...] exam. Electronically signed by: Kobi farr/morris:11/18/2018 16:24:53 J2Ee Engineer: Christine Nugent (R), [facility] letter sent: Normal Exam Reading location: [facility] BI-RADS: 1 Negative Ruben Amaya MD IMG MAMMO ORDERABLES F inal Result * PATHOLOGY CYTOLOGY SILK SCREEN PRINTER MACHINE (12/11/2011) Specimen of unknown material (specimen) Ruben Amaya MD PATHOLOGY/CYTOLOGY ORD ERABLES Final Result from Last 3 Months or Most Recently Relevant to Health Maintenance Insurance [facility] Care Teams Wire Wheeler Relationship Specialty Start Date End Date Ruben Amaya MD Consulting Physician Obstetrics & Gynecology 08/11/18
--- OUTSIDE RECORDS SUMMARY | 2024-08-18 16:22 | XMS_ITS | Referral Summary ---
Author Organization [facility] [address] [facility] Address [address] [place] [address] Care Team Providers Care Solutions Executive Security Name Role Phone Rajiv Nowak MD Primary Care Provider [phone] [phone] Allergies Active Allergy Reactions Criticality Noted Date [...] day Assessment & Plan (05/17/2020 10:24 AM BACKER UP): Will recheck VitD levels today; if low [...] week Assessment & Plan (02/26/2021 10:05 AM BACKER UP): Patient reports no significant work on weight [...] winter Assessment & Plan (05/17/2020 10:24 AM BACKER UP): Not well controlled, patient reports she exercises [...] therapy Assessment & Plan (02/26/2021 10:04 AM BACKER UP): Elevated total cholesterol, LDL cholesterol and triglycerides; [...] daily Assessment & Plan (02/26/2021 10:04 AM BACKER UP): Stable, well controlled; blood pressure at target today and previous appointments Continue lisinopril -hydrochlorothiazide 20-25 daily Assessment & Plan (08/14/2020 2:10 PM CDT): -stable, well controlled; at target today -continue Zestoretic 20-25 today Assessment & Plan (05/17/2020 10:23 AM BACKER UP): Well controlled, bp at target, will continue [...] on file Legal Sex Female 5:45 PM BACKER UP Gender Identity Not on file Sexual Orientation [...] Stool DNA - Cologuard Negative Not Applicable [employer] (CLIA #:[id number]) Comment: A negative result indicates a low [...] (Darren Winkler al, N Engl J Med 2014;370(14):3435-2493) The normal value (reference range) for this assay is negative. COLOGUARD RE-SCREENING RECOMMENDATION: Periodic routine colorectal cancer screening is an important part of preventive healthcare for asymptomatic persons at average risk for colorectal cancer. Following a negative Cologuard result, the [place] Cancer Society and U.S. Multi-Society Task Force screening guidelines recommend a Cologuard re-screening interval of 3 years. References: [place] Cancer Society (ACS). Colorectal cancer prevention and early detection. [place], [place]: [place] [employer]; [updated 2015Jul 14]. https://www.cancer.org/cancer/qtgfj-xghhdy-gfexne/mzyhiuewy-dvntqpcge-mbelcgq/ac s-rec ommendations.html. Accessed November 20, 2017; Adams DK, Vinod CR, Carmen MittalK, Colorectal Cancer Screening: Recommendations for Physicians and Patients from the U.S. Multi-Society Task Force on Colorectal Cancer Screening, Am J Gastroenterology 2017; 112:3840-2899. TEST TYPE: Composite algorithmic analysis of stool [...] interval of every 3 years by the [place] Cancer Society and U.S. Multi-Society Task Force. [...] can be accessed at the following location: www.[employer].com/results. Additional description of the Cologuard test process, warnings and precautions can be found at www.cologuardtest.com. Rx only. Stool 07/04/2020 9:30 AM CDT 07/06/2020 1:45 PM CDT us Rajiv Nowak MD LAB BODY FLUIDS AND STOOL S ORDERABLES Final Result [facility] (CLIA #:[id number]) [place] [place] [address] * Genital fluid pap smear, thin prep and HPV (10/28/2018) 10/28/2018 us Historical Provider LAB CYTOLOGY ORDERABLES F inal Result from Last 3 Months or Most Recently Relevant to Health Maintenance Insurance [id number] [place] [address] [facility] Address: [address] [address] [facility] Address: [address] [address] [facility] Address: [address] [address] Care Teams Solutions Executive Security Relationship Specialty Start Date End Date Rajiv Nowak MD [address] [place] [address] PCP - General Family Medicine 05/17/20
--- OUTSIDE RECORDS SUMMARY | 2024-08-18 16:22 | XMS_ITS | Clinical Summary ---
Author Organization [facility] Address [address] Attn: Epic Prelude ADT [place] [address] Care Team Providers Care Recording Clerk Name Role Phone Unavailable Primary Care Provider Unavailabl e Active Problems Problem Noted Date Diagnosed Date Unspecified essential hypertension 05/23/2003 Other and unspecified hyperlipidemia 05/23/2003 Social History Tobacco Use Types Packs/Day Years Used Date Smoking Tobacco: Never Assessed Comments Unknown Sex and Gender Information Value Date Recorded Sex Assigned at Not on file Legal Sex Female 3:15 AM YOUTH LIAISON OFFICER Gender Identity Not on file Sexual Orientation Not on file Last Filed Vital Signs Vital Sign Reading Time Taken Comments Blood Pressure 150/80 05/23/2003 4:00 PM YOUTH LIAISON OFFICER Pulse - - Temperature - - Respiratory Rate - - Oxygen Saturation - - Inhaled Oxygen Concentration - - Weight 96.6 kg (213 lb) 05/23/2003 4:00 PM YOUTH LIAISON OFFICER Height - - Body Mass Index - - Plan of Treatment Upcoming Encounters Date Type Department Care Team (Late st Contact Info) Description 12/27/2024 10:30 AM CDT Office Visit [facility] Oncology and Hematology - [place] [address] [facility] [address] [place] [address] Sarkis Umanzor MD [address] [place] [address] Health Maintenance Due Date Last Done Comments [...]
== END 2024-08-18 16:03 | disposition home or self-care (01) ==
LOC: ANHIMG 16:20
PROVIDERS: PCP Nurse Practitioner Adult Health; Visit Provider Nurse Practitioner Adult Health
DX: Z12.31 Encounter for screening mammogram for malignant neoplasm of breast (principal)
CPT/HCPCS: 77063; 77067

== ENCOUNTER 2024-12-27 11:32 | Outpatient (CLI) | payer OTHER, SELFPAY ==
--- OUTSIDE RECORDS SUMMARY | 2024-12-27 10:30 | XMS_ITS | Encounter Summary ---
Author Organization [facility] Address [address] [place] [address] Care Team Providers Care Crop Setting Out Machine Operator Name Role Phone Unavailable Primary Care Provider Unavailabl e Reason for Referral * Laboratory Services (Routine) - Open Specialty Diagnoses / Procedures Referred By Darcy kinney Referred To Contact Diagnoses Erythrocytosis Procedures JAK2 MUTATION Sarkis Umanzor MD [address] [place] [address] Phone: tel: fax: Referral ID Status Reason Start Date Expiration Date Visits Re quested Visits Authorized [id number] Open 12/27/2024 01/27/2026 1 1 Reason for Visit * Reason Comments Establish Care Encounter Details Date Type Department Care Team (Late st Contact Info) Description 12/27/2024 10:30 AM CDT Office Visit [facility] Oncology and Hematology - [place] [address] [place] [address] [address] [place] [address] Sarkis Umanzor MD [address] [place] [address] Leukocytosis, unspecified type (Primary Dx); Erythrocytosis Social History Tobacco Use Types Packs/Day Years Used Date Smoking Tobacco: Never Smokeless Tobacco: Never Alcohol Use Standard Drinks/Week Comments Yes 0 (1 standard drink = 0.6 oz pur e alcohol) Occasionally Comments Unknown Sex and Gender Information Value Date Recorded Sex Assigned at Not on file Legal Sex Female 3:15 AM KIER TENDER Gender Identity Not on file Sexual Orientation Not on file documented as of this encounter Last Filed Vital Signs Vital Sign Reading Time Taken Comments Blood Pressure 166/107 12/27/2024 10:52 AM CDT Pulse 81 12/27/2024 10:46 AM CDT Temperature 36.7 C (98 F) 12/27/2024 10:46 AM CDT Respiratory Rate 15 12/27/2024 10:4 6 AM CDT Oxygen Saturation 98% 12/27/2024 10: 46 AM CDT Inhaled Oxygen Concentration - - Weight 90.2 kg (198 lb 12.8 oz) 025 10:46 AM CDT Height 162.6 cm (5' 4) 12/27/2024 10:4 6 AM CDT Body Mass Index 34.12 12/27/2024 10:46 AM CDT documented in this encounter Progress Notes * Sarkis Umanzor MD - 12/27/2024 12:34 PM CDT Hematology-oncology consult Note Requesting Physician Primary Care Physician No primary care provider on file. Problem list Patient Active Problem List Diagnosis Code Unspecified essential hypertension I10 Other and unspecified hyperlipidemia E78.5 Previous TREATMENT ? Measurable Disease ? Reason for Visit Haritha Landon is a 54 y.o. female who was referred for consultation for leukocytosis and erythrocytosis. History of present illness She is a pleasant 54-year-old female who has been in good health except history of hypertension and prediabetic state referred to me for leukocytosis and erythrocytosis. Patient had routinelabs done on August 03, 2024 that showed a WBC count of 11.5 and hemoglobin of 15.2 with hematocrit of48.5. There was 51% lymphocyte and 41% neutrophils. Has some night sweats but denies any fevers andchills. She has lost 50 pound weight intentionally in 2 years duration. She denies any history of smoking and lung disease. Denies any history of sleep apnea. She also denies any history of thromboembolic events including stroke and heart attack. She denies any other new complaints. Past Medical History Past Medical History: Diagnosis Date Hypertension Pre-diabetes Surgical History Past Surgical History: Procedure Laterality Date HX KNEE REPLACEMENT Medications Current Outpatient Medications Medication Sig Dispense Refill metFORMIN (GLUCOPHAGE XR) 500 mg Extended Release 24 hour tablet Take 500 mg by mouth daily. lisinopril-hydroCHLOROthiazide (ZESTORETIC) 20-25 mg tablet Take 1 Tablet by mouth daily. (Patient taking differently: Take 1 Tablet by mouth daily. Taking 1/2 tablet every 3-4 days.) No current facility-administered medications for this visit. Allergies Allergies Allergen Reactions Adhesive Itching and Rash Immunizations: There is no immunization history on file for this patient. Family History Family History Problem Relation Name Age of Onset Diabetes Father Alzheimer's Disease Father No Known Problems Mother No Known Problems Child No Known Problems Child No Known Problems Child Social History Social History Tobacco Use Smoking status: Never Smokeless tobacco: Never Substance Use Topics Alcohol use: Yes Comment: Occasionally Review of Systems Constitutional: Patient did not mention fever; complain of occasional night sweats, 50 pound intentional weight loss in 2 years and denies any tiredness and fatigue NEENT: Patient did not mention headache; no change in vision; no change in hearing; no sore throat;no dysphagia Respiratory: Patient did not mention shortness of breath; no pleuritic chest pain; no cough; no hemoptysis Cardiac: Patient did not mention cardiac-like chest pain; no palpitations; no orthopnea; no PND; noDOE Breasts: Patient did not mention tenderness; no masses GI: Patient did not mention abdominal pain; no nausea; no vomiting; no diarrhea; no hematochezia; no melena : Patient did not mention dysuria; no frequency; no hesitancy; no hematuria CUSTOM APPLICATOR: Musculosketetal: Patient did not mention bone pain; no arthralgia; no joint swelling; no myalgia; Skin: Patient did not mention pruritis; no rash; no petechiae; no ecchymoses Endocrine: Patient did not mention polydipsia; no polyuria; no unusual weight gain Neuro: Patient did not mention headache; no change in vision; no sensory changes; no muscle weakness; no confusion; no seizures Psych: Patient did not mention anxiety; no depression; Physical Exam Vitals: As per nursing note Constitutional: Well developed, well nourished, no acute distress, non-toxic appearance Teeth and gum. No signs of infection or swelling. Eyes: PERRL, conjunctiva normal HEENT: Atraumatic, external ears normal, nose normal, oropharynx moist, no pharyngeal exudates. no sinus tenderness Neck- normal range of motion, no tenderness, supple Respiratory: No respiratory distress, normal breath sounds, no rales, no wheezing Cardiovascular: Normal rate, normal rhythm, no murmurs, no gallops, no rubs GI: Soft, nondistended, normal bowel sounds, nontender, no splenomegaly, no hepatomegaly, no mass, no rebound, no guarding : No costovertebral angle tenderness Musculoskeletal: No edema, no tenderness, no deformities. Back- no tenderness Integument: Well hydrated, no rash, Digits and nails inspection normal Lymphatic: No lymphadenopathy noted Neurologic: Alert & oriented x 3, CN 2-12 normal, normal motor function, normal sensory function, no focal deficits noted Psychiatric: Speech and behavior appropriate ? labs No results found for this or any previous visit (from the past 24 hours). Labs from August 03, 2024 showed WBC 11.5 hemoglobin 15.2 hematocrit 48.5 platelet 258,000 [id number]% lymphocyte 51% Pathology ? Imaging & Other Studies Performance Status? Assessment / Plan: ? Leukocytosis. Patient is a pleasant 54-year-old female with history of hypertension and prediabetic state referred to me for leukocytosis. He has occasional night sweats but denies any fevers and chills. Denies any new lumps bumps and lymphadenopathy. She has intentionally lost 50 pound weight in 2 years duration. I have reviewed the labs that showed elevated WBC count and lymphocyte. We have discussed the differential diagnosis which could be underlying lymphoproliferative disorders versus infection especially viral infection. I will order the workup that will include CBC with differential, CMP, C-reactive protein, sedimentation rate and flow cytometric analysis for leukemia panel. I will discuss the finding with patient in 2 weeks. I have answered all questions to patient's satisfaction. Erythrocytosis. She denies any history of smoking and COPD. She denies any history of sleep apnea. She has lost 50 pound weight in 2 years duration. Her erythrocytosis could be secondary to hemoconcentration with dehydration versus related to the obesity. I will order workup that will include erythropoietin level and JAK2 mutation testing. Based on the repeat lab we will decide about phlebotomy and use of aspirin. Hypertension. Patient is on Zestril. Prediabetes. She is on metformin. Have recommended regular exercise and weight loss. Thank you very much for allowing me to participate in Haritha Landon's evaluation and management. Please feel free to contact if I can be of any further assistance in your patient???s care requiringhematology or oncology evaluation. Sincerely, ? ? Sarkis Umanzor M.D. cell TOBACCO COUNSELING She is not a tobacco/nicotine user. Sarkis Umanzor MD ,12/27/2024 12:34 PM ? Total time spent 60 minutes, two third of the total time spent counseling patient [id number]. CC:? documented in this encounter Plan of Treatment Upcoming Encounters Date Type Department Care Team (Late st Contact Info) Description 01/10/2025 4:30 PM CDT Telephone Check Up [facility] Oncology and Hematology - [place] [address] [facility] [address] [place] [address] Sarkis Umanzor MD [address] [facility] [address] [place] [address] Scheduled Orders Name Type Priority Associated Diagnoses Orde r Schedule CBC WITH DIFFERENTIAL Lab Stat Leukocytosis, unspecified type Expected: 12/27/2024, Expires: 12/27/2025 COMPREHENSIVE METABOLIC PANEL Lab Stat Leukocytosis, unspecified type Expected: 12/27/2024, Expires: 12/27/2025 C-REACTIVE PROTEIN Lab Routine Leukocytosis, unspecified type Expected: 12/27/2024, Expires: 12/27/2025 FLOW CYTOMETRY PANEL Lab Routine Leukocytosis, unspecified type Expected: 12/27/2024, Expires: 12/27/2025 SEDIMENTATION RATE Lab Routine Leukocytosis, unspecified type Expected: 12/27/2024, Expires: 12/27/2025 ERYTHROPOIETIN LEVEL Lab Routine Erythrocytosis Expected: 12/27/2024, Expires: 12/27/2025 JAK2 MUTATION Lab Routine Erythrocytosis Expected: 12/27/2024, Expires: 12/27/2025 documented as of this encounter Visit Diagnoses Diagnosis Leukocytosis, unspecified type- Primary Erythrocytosis Reserved for inherently not codable concepts WITHOUT codable children documented in this encounter
--- NOTE | 2024-12-27 10:56 | CY_PTH ---
PATIENT: Haritha Landon LOC: [facility] #:[id number] AGE/SX: 54/F ROOM: RE12/27/[address]: Sarkis Umanzor MD : 1970 BED: DIS: 12/27/2024 SPEC #: [id number] RECD: 12/27/24 12:27 STATUS: ISABEL REQ #: [id number] DAVID: 12/27/24 10:[address]: Sarkis Umanzor DEPT: [facility] Cytology RECD BY: Sparkle David ENTERED: 12/27/24 12:28 SP TYPE: Cytology OTHR DR: Kika Jacob APRN Tissues: A - Flow Procedures: Flow Cytometry
[2024-12-27 11:49] LABS: Hematocrit 47.0 % (37.0-47.0); Hemoglobin 15.9 g/dL (12.0-15.0); Immature Granulocyte Percent A 0.4 % (0-0.5); Lymphocytes Absolute Auto 3.46 K/mm3 (0.9-3.2); Mean Corpuscular HGB Conc 33.8 g/dl (32-36); Mean Corpuscular Hemoglobin 29.1 pg (26-34); Mean Corpuscular Volume 86.1 fl (80-100); Nucleated Red Blood Cells Absolute Auto 0.000 K/mm3 (0.0-0.012); Nucleated Red Blood Cells Perc 0.0 % (0.0-0.2); Platelet Count Result 252 k/mm3 (150-375); Red Blood Count 5.46 M/mm3 (4.2-5.4); White Blood Count 10.5 K/mm3 (4.5-10.0)
[2024-12-27 12:16] LABS: Alanine Aminotransferase 17 U/L (6-35); Albumin Level 4.4 g/dL (3.5-5.1); Alkaline Phosphatase 67 U/L (38-126); Anion Gap 5 mmol/L (4-12); Aspartate Amino Transferase 24 U/L (14-36); Bilirubin,Total 0.4 mg/dL (0.2-1.3); Blood Urea Nitrogen 15 mg/dL (7-17); CRP < 0.5 mg/dL (<1.0); Calcium 9.3 mg/dL (8.4-10.2); Carbon Dioxide 29 mmol/L (22-30); Chloride 103 mmol/L (98-107); Estimated Glomerular Filt Rate > 60; Glucose 103 mg/dL (65-110); Potassium 4.2 mmol/L (3.4-5.0); Sodium 137 mmol/L (137-145); Total Protein 8.0 g/dL (6.3-8.2)
--- OUTSIDE RECORDS SUMMARY | 2024-12-27 12:49 | XMS_ITS | Encounter Summary ---
Author Organization [facility] Address [address] [place] [address] Care Team Providers Care Welder Explosion Name Role Phone Unavailable Primary Care Provider Unavailabl e Encounter Details Date Type Department Care Team (Late Contact Info) Description 05/23/2003 Outpatient Historical [facility] Internal Medicine [address] [address] Rafal Riley MD [address] [place] [phone] Social History Tobacco Use Types Packs/Day Years Used Date Smoking Tobacco: Never Assessed Comments Unknown Sex and Gender Information Value Date Recorded Sex Assigned at Not on file Legal Sex Female 3:15 AM SAP SENIOR DEVELOPER Gender Identity Not on file Sexual Orientation Not on file documented as of this encounter Last Filed Vital Signs Vital Sign Reading Time Taken Comments Blood Pressure 150/80 05/23/2003 4:00 PM SAP SENIOR DEVELOPER Pulse - - Temperature - - Respiratory Rate - - Oxygen Saturation - - Inhaled Oxygen Concentration - - Weight 96.6 kg (213 lb) 05/23/2003 4:00 PM SAP SENIOR DEVELOPER Height - - Body Mass Index - - documented in this encounter Plan of Treatment Upcoming Encounters Date Type Department Care Team (Late st Contact Info) Description 01/10/2025 4:30 PM CDT Telephone Check Up [facility] Oncology and Hematology - [place] [address] [facility] [address] [place] [address] Sarkis Umanzor MD [address] [facility] [address] [place] [address] documented as of this encounter Visit Diagnoses Not on filedocumented in this encounter
--- OUTSIDE RECORDS SUMMARY | 2024-12-27 12:49 | XMS_ITS | Data Portability ---
Author Organization [place] [facility] [employer], Main Office Address [address] [place] [address] Assessment Encounter Date Assessment Date Assessment LastModified by Organization Details LastModified Time 06/04/2022 06/04/2022 52-year-old patient presents today for right knee pain. She has been experiencing pain for a few years. 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 Thanks 2022 023 [facility], [address] , [facility], [place], [address], 3 12:59:14 Procedures injection/a spiration joint/bursa (PROC) - in office procedure, administere d by provider 2022 023 [email or web address] In-Office Order, Internal Use Only DO Not Attach Compendium DO Not Attach Compendium, Do Not Delete/merge, [id number] 3 10:03:20 Surgeries None recorded. Imaging MRI, knee, w/o contrast 2022 023 [facility], [address] [place] [address] , [place], [address], 3 09:53:03 Medication Orders Mobic 15 mg tablet [address] [id number], [address] , [place], [place], [id number], 3 01:26:26 Kenalog 10 mg/mL suspension for injection [address] [id number], [address] , [place], [place], [id number], 3 15:25:11 ropivacaine (PF) 5 mg/mL (0.5 %) injection solution [address] [id number], [address] , [place], [place], [id number], 3 15:25:11 Patient TargetsNo targets recorded. Patient [...] contr ast No observ ation record ed. [address] [place], [address], 08/14/2022 10:03:52 08/17/19 23 08/15/2022 rhyth m strip , EKG* No observ ation record ed. [address] (Imaging) [address] [place] [address] [address], [place], [address], 08/20/2022 14:56:28 Result Notes None recorded. Problems Name Problem SNOMED Code Status Onset Date Resolution Date Notes Provider Name and Address Organization Details Recorded Time Pain of right knee joint 184370761880755 Active 2022 Fatou banks, [employer] 3 09:48:50 Tear of medial meniscus of knee 666515846 Active 2022 Jose Alberto Oconnell MD [address] [facility], [place], [address], [employer] 3 23:34:08 Problem Notes None recorded. Procedures Surgical History Date Name Laterality Status Provider Name and Address Organization Details Recorded Time 3 Ortho - Cortisone Injection completed Jose Alberto Oconnell MD [address] [facility], [place], [address], [employer] 07/18/2022 17:05:02 Imaging Results None recorded. Procedure Notes None recorded. Medical Equipment None [...] 10 mg by injection route. 2022 active [facility]: [phone] Not Available Not [...] 20 mg by injection route. 2022 active [facility] [phone] Not Available Not Available Not Available Vitals Date Recorded Body height Body mass index (BMI) Body weight Provider Name and Address Organization Details Last Updated DateTime 06/04/2022 162.56 cm 39.5 kg/m2 765525.25 g Fatou Fleming [employer] [facility] [employer] 06/04/2022 09:49:41 Date Recorded Body height Body mass index (BMI) Body weight Provider Name and Address Organization Details Last Updated DateTime 07/09/2022 162.56 cm 41.2 kg/m2 463587.17 g Nola Mendoza CNA [employer] [facility] [employer] 07/09/2022 09:45:53 Date Recorded Body height Body mass index (BMI) Body weight Provider Name and Address Organization Details Last Updated DateTime 08/06/2022 162.56 cm 41.2 kg/m2 522063.17 g Nola Mendoza CNA [facility] [employer] 08/06/2022 11:38:56 Date Recorded Body height Body mass index (BMI) Body weight Provider Name and Address Organization Details Last Updated DateTime 08/13/2022 162.56 cm 41.2 kg/m2 631381.17 g BRANDON Ochoa ralali [employer] 08/13/2022 10:10:55 Date Recorded Body height Body mass index (BMI) Body weight Provider Name and Address Organization Details Last Updated DateTime 09/05/2022 162.56 cm 41.2 kg/m2 750536.17 deidra Patrick [place] r[facility]ali [employer] 09/05/2022 09:55:43 Social History Question Answer Notes LastModified by Mochila Details LastModified Time Tobacco Smoking Status Never Smoker Fatou Fleming darren, [place] [employer] [facility] [employer] 06/04/2022 09:51:09 What Was The Date Of Your Most Recent Tobacco Screening? 06/04/2022 [email or web address] Information not available 06/04/2022 Sex: Unknown Functional Status Question Answer Note LastModified by Mochila Details LastModified Time What is your level of alcohol consumption? Occasional [email or web address] Information not available 06/04/2022 Mental Status None recorded. Family History Relationship Description Onset Age of this Age Resolved Age Notes LastModified by Organization Details LastModified Time Maternal Grandmother Family history of malignant neoplasm [email or web address] Not available 06/04 09:50:33 Father Hypertensive disorder [email or web address] Not available 06/04 09:50:42 Father Diabetes mellitus [email or web address] Not available 06/04 09:50:52 Medical History Condition Response HYPERTENSION Y Gynecological HistoryNo gynecological history recorded. Obstetrics History GPAL:G 0 P 0 0 0 0 Past Encounters Encounter ID Performer Location Encounter Start Date Encounter Closed Date Diagnosis/Indication Diagnosis SNOMED-CT Code Diagnosis ICD10 Code Diagnosis IMO Codes Diagnosis Note [id number] Fani Marshall NP [facility] [place] [address] [place] [address] 06/04/2022 09:31:19 06/04/2022 10:38:50 Pain of right knee joint 5086759615 79869 M25.561 [id number] Jose Alberto Oconnell MD [facility] [place] [address] [place] [address] 07/09/2022 09:43:23 07/09/2022 10:05:33 Pain of right knee joint 4233854362 43094 M25.561 [id number] Fani Marshall PHARMACOLOGY TEACHER [facility] [place] [address] [place] [address] 08/06/2022 11:37:44 08/06/2022 12:25:07 Pain of right knee joint 2601445292 27986 M25.561 [id number] Jose Alberto Oconnell MD [facility] [place] [address] [place] [address] 08/13/2022 10:04:01 08/13/2022 10:45:50 Pain of right knee joint 3297077543 95905 M25.561 Tear of me dial meniscus of knee 630271499 S83.241A [id number] Jose Alberto Oconnell MD [facility] [place] [address] [place] [address] 09/05/2022 09:54:07 09/05/2022 10:05:47 Tear of medial meniscus of knee 958254611 S83.241A Pain of ri ght knee joint 6862381293 26441 M25.561 Health Concerns Section Related Observation LastModified by Organization Detai ls LastModified Time None Recorded Concern Status LastModified by Organization Details LastModified Time None Recorded Advance Directives Directive None Recorded Payers Insurance Date Sequence Insurance Name Policy Number Policy Chapin Covered Member ID Chapin Member ID Guarantor Name 09/28/2022 1 [facility] [id number] Carlyle Landon [id number] Haritha Landon 06/04/2022 1 [facility] Carlyle Landon [id number] Haritha Landon OBGyn Episode No OBEpisode recorded.
--- OUTSIDE RECORDS SUMMARY | 2024-12-27 12:49 | XMS_ITS | Clinical Summary ---
Author Organization [facility] Address [address] [place] [address] Phone Care Team Providers Care Environmental Studies Professor Name Role Phone Ruben Amaya MD Unavailable [phone] Allergies Active Allergy Reactions Criticality Noted Date Comments Adhesive Tape Rash,Itching 10/27/2016 Medications ergocalciferol (VITAMIN D) 49777 UNIT CapsuleIndicatio ns:Vitamin D deficiency Take 1 [...] of 3 - 19+ 3-dose series) 01/22/1987 HPV/Cotest 01/22/1998 Cologuard 01/22/2013 Colonoscopy 01/22/2013 Colorectal Cancer Screening 01/22/2013 Immunochemical Fecal Occult Blood 01/22/2013 Cervical Cancer Screening (CCS) 12/10/2014 Pap Smear 12/10/2014 12/11/2011 Pneumococcal Immunization (5 0+ years) (1 of 1 - PCV) 01/22/2018 Zoster Immunization (1 of 2) 01/22/2018 Influenza Immunization (#1) 11/21/202411/21, 01/13/2013 SARS-COV-2 Immunization ( - season) 2024 Respiratory Syncytial Virus (RSV) Immunization (Adult) (1 - 1-dose 75+ series) 01/22/2043 Mammogram Discontinued 11/17/2018, 01/25/2013 Human Papillomavirus (HPV) Immunization Aged Out No longer eligible based on patient's age to complete this topic Meningococcal Immunization (ACWY) Aged Out No longer eligible based on patient's age to complete this topic Rotavirus Immunization Aged Out No lo nger eligible based on patient's age to complete this topic Procedures Procedure Name Priority Date/Time Associated Diagnosis Comments [place] SCREENING BILATERAL DIGITAL W CAD W JOON Routine 11/17/2018 10:14 AM CDT Encounter for screening mammogram for malignant neoplasm of breast PATHOLOGY CYTOLOGY LIMOUSINE DRIVER Routine 12/11/2011 from Last 3 Months or [...] to exams dated: 01/15/2010, 01/25/2013, and 01/19/2012 [facility]. BREAST TISSUE:There are scattered fibroglandular densities [...] exam. Electronically signed by: Kobi farr/morris:11/18/2018 16:24:53 Armament Mechanic: Christine Nugent (R), [facility] letter sent: Normal Exam Reading location: [facility] BI-RADS: 1 Negative Procedure Note Kobi García [...] to exams dated: 01/15/2010, 01/25/2013, and 01/19/2012 [facility]. BREAST TISSUE:There are scattered fibroglandular densities [...] exam. Electronically signed by: Kobi farr/morris:11/18/2018 16:24:53 Armament Mechanic: Christine Nugent (R), [facility] letter sent: Normal Exam Reading location: [facility] BI-RADS: 1 Negative Ruben Amaya MD IMG MAMMO ORDERABLES F inal Result * PATHOLOGY CYTOLOGY LIMOUSINE DRIVER (12/11/2011) Specimen of unknown material (specimen) Ruben Amaya MD PATHOLOGY/CYTOLOGY ORD ERABLES Final Result from Last 3 Months or Most Recently Relevant to Health Maintenance Insurance [facility] Care Teams Environmental Studies Professor Relationship Specialty Start Date End Date Ruben Amaya MD Consulting Physician Obstetrics & Gynecology 08/11/18
--- OUTSIDE RECORDS SUMMARY | 2024-12-27 12:49 | XMS_ITS | Clinical Summary ---
Author Organization [facility] [address] [facility] Address [address] [facility] [address] Care Team Providers Care Instructor Physical Education Name Role Phone Rajiv Ortiz MD Primary Care Provider [phone] Allergies Active Allergy Reactions Criticality Noted Date [...] day Assessment & Plan (05/17/2020 10:24 AM PHYSICIAN EXTENDER): Will recheck VitD levels today; if low [...] week Assessment & Plan (02/26/2021 10:05 AM PHYSICIAN EXTENDER): Patient reports no significant work on weight [...] winter Assessment & Plan (05/17/2020 10:24 AM PHYSICIAN EXTENDER): Not well controlled, patient reports she exercises [...] therapy Assessment & Plan (02/26/2021 10:04 AM PHYSICIAN EXTENDER): Elevated total cholesterol, LDL cholesterol and triglycerides; [...] daily Assessment & Plan (02/26/2021 10:04 AM PHYSICIAN EXTENDER): Stable, well controlled; blood pressure at target today and previous appointments Continue lisinopril -hydrochlorothiazide 20-25 daily Assessment & Plan (08/14/2020 2:10 PM CDT): -stable, well controlled; at target today -continue Zestoretic 20-25 today Assessment & Plan (05/17/2020 10:23 AM PHYSICIAN EXTENDER): Well controlled, bp at target, will continue [...] on file Legal Sex Female 5:45 PM PHYSICIAN EXTENDER Gender Identity Not on file Sexual Orientation [...] CDT Plan of Treatment Not on file Insurance [facility]PPO Address: [place] [address] [facility] H[facility]/PPO Address: [place] [address] [facility] H[facility]/PPO Address: [address] [address] Care Teams Instructor Physical Education Relationship Specialty Start Date End Date Rajiv Ortiz MD [address] [place] [address] PCP - General Family Medicine 05/17/20
--- OUTSIDE RECORDS SUMMARY | 2024-12-27 12:49 | XMS_ITS | Clinical Summary ---
Author Organization [facility] Esthela velasquez Felix Address [address] [place] [address] Care Team Providers Care Procurement Technician Name Role Phone Unavailable Primary Care Provider Unavailabl e Allergies Active Allergy Reactions Criticality Noted Date Comments Adhesive Itching,Rash Medium 10/27/2016 Medications metFORMIN (GLUCOPHAGE XR) 500 mg Extended Release 24 hour tablet Take 500 mg by mouth daily. 12/23/2024 Active lisinopril-hydro CHLOROthiazide (ZESTORETIC) 20-25 mg tablet Take 1 Tablet by mouth daily. 10/23/2024 Active Active Problems Problem Noted Date Diagnosed Date Unspecified essential hypertension 05/23/2003 Other and unspecified hyperlipidemia 05/23/2003 Encounters Date Type Department Care Team Description 12/27/2024 10:30 AM CDT Office Visit [facility] Oncology and Hematology - Milad [address] [facility] [address] [place] [address] Sarkis Umanzor MD Leukocytosis, unspecified type (Primary Dx); Erythrocytosis from Last 3 Months Family History Medical History Relation Name Comments No Known Problems Child 1 No Known Problems Child 2 No Known Problems Child 3 Alzheimer's Disease Father Diabetes Father No Known Problems Mother Relation Name Status Comments Child 1 Alive Child 2 Alive Child 3 Alive Father Alive Mother Alive Social History Tobacco Use Types Packs/Day Years Used Date Smoking Tobacco: Never Smokeless Tobacco: Never Alcohol Use Standard Drinks/Week Comments Yes 0 (1 standard drink = 0.6 oz pur e alcohol) Occasionally Comments Unknown Sex and Gender Information Value Date Recorded Sex Assigned at Not on file Legal Sex Female 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 Gender Identity Not on file Sexual Orientation [...] Mass Index 34.12 12/27/2024 10:46 AM CDT Plan of Treatment Upcoming Encounters Date Type Department Care Team (Late st Contact Info) Description 01/10/2025 4:30 PM CDT Telephone Check Up [facility] Oncology and Hematology [facility] [address] [facility] [address] [place] [address] Sarkis Umanzor MD [address] [facility] [address] [place] [address] Health Maintenance Due Date Last Done Comments Pre-Diabetes and Diabetes Screening 1970 HEPATITIS B VACCINES (1 of 3 - 19+ 3-dose series) 01/22/1987 HPV/Cotest (21-29) 01/22/1989 HPV/Cotest (30-65) 01/22/1998 COLORECTAL SCREENING 01/22/2013 Colorectal Cancer Screening 01/22/2013 FIT-DNA Q 3 years 01/22/2013 FIT/FOBT Q 1 year 01/22/2013 Flex Sig/CT Colonography Q 5 years 01/22/2013 CERVICAL CANCER SCREENING 12/10/2014 PAP SMEAR 12/10/2014 12/11/2011 ZOSTER VACCINE (1 of 2) 01/22/2018 BREAST CANCER SCREENING 08/01/2021 08/02/19 21, 11/17/2018, 11/17/2018, Additional history exists Preventative Visit- Commercial 03/23/2024 09/20/2018 INFLUENZA VACCINE (#1) 2024 7, 01/13/2013, 01/13/2013 DTAP/TDAP/TD VACCINES (2 - T d or Tdap) 05/17/2030 05/17/2020 Insurance CHOICE [id number]
[2025-01-04 13:09] LABS: CALR + MPL + E12-E15 YES YES
== END 2024-12-27 11:33 | disposition home or self-care (01) ==
LOC: ANHLAB 11:33
PROVIDERS: PCP Nurse Practitioner Adult Health; Visit Provider Internal Medicine Hematology & Oncology
DX: D72.829 Elevated white blood cell count, unspecified (principal)
CPT/HCPCS: 36415; 80053; 81219; 81270; 82668; 85025; 85652; 86140; 88184